=== PATIENT | male | born 1975 | race Caucasian/White ===

== ENCOUNTER 2018-10-15 13:00 | Outpatient (RCR) | payer MEDICARE, MEDICAID, SELFPAY ==
--- NOTE | 2018-10-02 14:57 | HMH.PTOPWND ---
Rehab Outpt Wound Evaluation Rehab OP Wound Evaluation Start: 10/02/18 13:57 Freq: Status: Active Protocol: Document 10/02/18 14:42 PHOMARGA (Rec: 10/02/18 14:57 PHORNE [id number]) Electronically Signed By Cesario Joyce, PT 10/02/18 14:42 Subjective/History History History Pt is 43 yowm who presents with c/o sammy LE sores off and on x ~ 1 yr with insidious onset of symptoms. He currently reports no c/o pain and minimal swelling with no drainage from the multiple open sores on both lower legs. He reports that he has been treated for these sores previously with good results, but the sores always return. He has significant hemosiderin staining to sammy LE and numerous small purpuritic areas throughout both lower legs. He reports hx of DM-II ( poorly controlled), HTN, HL, and CCY. Would recommend PAYAL and further vascular studies if needed to assist with treatment options. Subjective Subjective Currently no c/o. Wound Eval Wound Right Lower Leg Wound Type multiple open sores of uknown type Is This a Chronic Wound Yes Wound Bed Appearance [place] Percentage Granulated (%) 100 Wound Margins Description Well Defined Surrounding Tissue Appearance Purple Edema Type Non-Pitting Edema Degree 1+ Query Text:1+ Trace, Barely Detectable, Rebound 15-30 seconds 2+ Moderate, Slight Indentation, Rebound 10-20 seconds 3+ Deep, Deeper Indentation, Rebound > 30 seconds 4+ Very Deep, Rebound > 60 seconds Edema Appearance Open Sores Drainage Amount None Drainage Odor No Odor Primary Dressing Unna Boot Wound Secondary Dressing Type Gauze Roll/Wrap,Elastic Bandage Dressing Change Patient Tolerance Tolerated Well Left Lower Leg Wound Type multiple sores of unknown type Is This a Chronic Wound Yes Wound Bed Appearance [place] Percentage Granulated (%) 100 Wound Margins Description Well Defined Surrounding Tissue Appearance
== END 2018-10-15 13:05 | disposition home or self-care (01) ==
LOC: PT 13:00
PROVIDERS: Visit Provider Family Medicine
DX: I87.2 Venous insufficiency (chronic) (peripheral) (principal)
CPT/HCPCS: 29580; 97163

== ENCOUNTER 2019-02-26 09:00 | Outpatient (RCR) | payer MEDICARE, MEDICAID, SELFPAY ==
--- NOTE | 2019-01-21 13:38 | HMH.PTOPWND ---
Rehab Outpt Wound Evaluation Rehab OP Wound Evaluation Start: 01/21/19 13:02 Freq: Status: Active Protocol: Document 01/21/19 13:26 DOMENICO (Rec: 01/21/19 13:32 PHORNE [id number]) Electronically Signed By Cesario Joyce, PT 01/21/19 13:26 Subjective/History History History Pt is 43 yowm who presents with c/o sammy LE sores off and on x ~ 1-2 yrs with insidious onset of symptoms. He currently reports no c/o pain and minimal swelling with minima drainage from the multiple open sores on both lower legs. He states, My legs looked really good after the last time I saw you but these sore came back after a couple months. He has significant hemosiderin staining to sammy LE and numerous small purpuritic areas throughout both lower legs. He reports hx of DM-II ( poorly controlled), HTN, HL, and CCY. Subjective Subjective Pt with no c/o pain, he doess reports new onset of red rash to B upper arms and anterior abdomen. Wound Eval Wound Left Lower Leg Wound Type Stasis Ulcer Is This a Chronic Wound Yes Wound Bed Appearance [place] Edema Appearance Open Sores Drainage Description Serosanguineous Drainage Amount Small Primary Dressing Unna Boot Wound Secondary Dressing Type Gauze Roll/Wrap,Adhering Gauze Roll Wound Debridement Method Gauze Dressing Change Patient Tolerance Tolerated Well Right Lower Leg Wound Type Stasis Ulcer Is This a Chronic Wound Yes Wound Bed Appearance [place] Wound Margins Description Well Defined Edema Appearance Open Sores Drainage Description Serosanguineous Drainage Amount Small Drainage Odor No Odor Primary Dressing Unna Boot Wound Secondary Dressing Type Gauze Roll/Wrap,Adhering Gauze Roll Wound Debridement Method Gauze Dressing Change Patient Tolerance Tolerated Well Wound Problems/Impairments Impairments Problems/Impairmments Palpation Tenderness,Impaired
== END 2019-02-26 09:05 | disposition home or self-care (01) ==
LOC: PT 09:00
PROVIDERS: PCP Urology; Referring Provider Physician Assistant; Visit Provider Physician Assistant
DX: R60.0 Localized edema (principal)
CPT/HCPCS: 29580; 97162; 97597; 97760

== ENCOUNTER → 2019-03-06 13:40 | Outpatient (CLI) | payer MEDICARE, MEDICAID, SELFPAY | PROVIDERS: PCP Physician Assistant; Visit Provider Physician Assistant | DX: G47.30 Sleep apnea, unspecified (principal); I10 Essential (primary) hypertension; R40.0 Somnolence; R06.02 Shortness of breath | CPT/HCPCS: G0399 ==

== ENCOUNTER → 2019-04-08 10:39 | Outpatient (CLI) | payer MEDICARE, MEDICAID, SELFPAY ==
[2019-04-08 11:54] LABS: Alanine Aminotransferase 53 U/L (12-78); Albumin Level 4.5 gm/dL (3.4-5.0); Albumin/Globulin Ratio 1.3 (1.1-1.8); Alkaline Phosphatase 240 U/L (46-116); Anion Gap 12.4 mEq/L (5-15); Aspartate Amino Transferase 32 U/L (15-37); Bilirubin,Total 0.8 mg/dL (0.2-1.0); Blood Urea Nitrogen 18 mg/dL (7-18); Calcium 9.1 mg/dL (8.5-10.1); Carbon Dioxide 29 mmol/L (21.0-32.0); Chloride 100 mmol/L (98-107); Chol/HDL Ratio 4.8 (1-3.5); Cholesterol 101 mg/dL (140-200); Creatinine,Serum 0.93 mg/dL (0.70-1.30); Estimated Glomerular Filt Rate 90 ml/min (>60); GFR (African American) 108 ML/MIN (>60); Globulin 3.4 gm/dl (1.3-3.2); Glucose 183 mg/dL (74-106); HDL Cholesterol 21 mg/dL (27-67); LDL Cholesterol 42 mg/dL (0-130); Potassium 4.4 mmoL/L (3.5-5.1); Sodium 137 mmol/L (136-145); Thyroid Stimulating Hormone 2.94 uIU/ml (0.358-3.740); Total Protein,Serum 7.9 gm/dL (6.4-8.2); Triglycerides 190 mg/dL (30-200); VLDL Cholesterol 38 mg/dL (0-40)
== END ==
PROVIDERS: Visit Provider Physician Assistant
DX: E11.42 Type 2 diabetes mellitus with diabetic polyneuropathy (principal); E78.5 Hyperlipidemia, unspecified; I10 Essential (primary) hypertension; Z13.29 Encounter for screening for other suspected endocrine disorder; Z79.84 Long term (current) use of oral hypoglycemic drugs
CPT/HCPCS: 36415; 80053; 80061; 83036; 84443

== ENCOUNTER → 2019-07-16 14:17 | Outpatient (CLI) | payer MEDICARE, MEDICAID, SELFPAY ==
[2019-07-16 17:06] LABS: Hemoglobin A1C 7.4 % (0.0-7.0)
[2019-07-16 17:13] LABS: Alanine Aminotransferase 69 U/L (21-72); Albumin Level 4.5 g/dL (3.4-5.0); Albumin/Globulin Ratio 1.3 (1.1-1.8); Alkaline Phosphatase 241 U/L (46-116); Aspartate Amino Transferase 40 U/L (15-37); Bilirubin,Total 0.4 mg/dL (0.2-1.0); Blood Urea Nitrogen 14 mg/dL (7-18); Calcium 9.2 mg/dL (8.5-10.1); Carbon Dioxide 25 mmol/L (21.0-32.0); Chloride 101 mmol/L (98-107); Chol/HDL Ratio 5.1 (1-3.5); Cholesterol 101 mg/dL (140-200); Creatinine,Serum 0.93 mg/dL (0.70-1.30); Estimated Glomerular Filt Rate 90 ml/min (>60); GFR (African American) 108 ML/MIN (>60); Globulin 3.4 gm/dl (1.3-3.2); Glucose 131 mg/dL (74-106); HDL Cholesterol 20 mg/dL (27-67); LDL Cholesterol 43 mg/dL (0-130); Sodium 139 mmol/L (137-145); Total Protein,Serum 7.9 g/dL (6.4-8.2); Triglycerides 188 mg/dL (30-200); VLDL Cholesterol 38 mg/dL (0-40)
== END ==
PROVIDERS: Visit Provider Physician Assistant
DX: E11.42 Type 2 diabetes mellitus with diabetic polyneuropathy (principal); R60.0 Localized edema; E78.5 Hyperlipidemia, unspecified; Z79.4 Long term (current) use of insulin; R06.02 Shortness of breath
CPT/HCPCS: 36415; 80053; 80061; 83036; 83880

== ENCOUNTER → 2019-09-30 13:34 | Outpatient (CLI) | payer MEDICARE, MEDICAID, SELFPAY | PROVIDERS: PCP Physician Assistant; Visit Provider Nurse Practitioner Family | DX: G47.33 Obstructive sleep apnea (adult) (pediatric) (principal) | CPT/HCPCS: 94762 ==

== ENCOUNTER → 2019-10-15 14:17 | Outpatient (CLI) | payer MEDICARE, MEDICAID, SELFPAY ==
[2019-10-15 15:02] LABS: Hemoglobin A1C 7.5 % (4.0-6.0)
[2019-10-15 16:08] LABS: Alanine Aminotransferase 51 U/L (12-78); Albumin Level 5.3 g/dl (3.5-5.0); Albumin/Globulin Ratio 1.8 (1.1-1.8); Alkaline Phosphatase 202 U/L (38-126); Anion Gap 16.2 mEq/L (5-15); Aspartate Amino Transferase 56 U/L (17-59); Bilirubin,Total 0.4 mg/dl (0.2-1.3); Blood Urea Nitrogen 11 mg/dl (9-20); Calcium 10.1 mg/dl (8.4-10.2); Carbon Dioxide 27 mmol/L (22.0-30.0); Chloride 97 mmol/L (98-107); Chol/HDL Ratio 3.8 (1-3.5); Cholesterol 113 mg/dl (140-200); Estimated Glomerular Filt Rate 124 ml/min (>60); GFR (African American) 150 ML/MIN (>60); Glucose 137 mg/dl (74-100); HDL Cholesterol 30 mg/dl (40-60); Potassium 4.2 mmoL/L (3.5-5.1); Sodium 136 mmol/L (136-145); Total Protein,Serum 8.3 g/dl (6.3-8.2); Triglycerides 243 mg/dl (30-150); VLDL Cholesterol 49 mg/dL (0-40)
[2019-10-15 16:19] LABS: Direct LDL Cholesterol 65.73 mg/dL (100-129)
== END ==
PROVIDERS: Visit Provider Physician Assistant
DX: E78.5 Hyperlipidemia, unspecified (principal); I10 Essential (primary) hypertension; E11.42 Type 2 diabetes mellitus with diabetic polyneuropathy; Z79.84 Long term (current) use of oral hypoglycemic drugs
CPT/HCPCS: 36415; 80053; 80061; 83036

== ENCOUNTER → 2020-01-15 14:02 | Outpatient (CLI) | payer MEDICARE, MEDICAID, SELFPAY ==
--- NOTE | 2020-01-15 14:11 | XR_ITS ---
PROCEDURE: XR CHEST 2V CLINICAL HISTORY: HEMOPTYSIS COMPARISON: No exams were available for comparison FINDINGS: The cardiomediastinal silhouette and pulmonary vascularity are within normal limits. The lungs are clear without infiltrates, suspicious nodules, or pleural effusions. No acute bony abnormalities. IMPRESSION: No acute findings. Dictated by: Beni James MD 01/15/2020 16:00 Beni James MD in [place] 01/15/2020 16:00
[2020-01-15 15:02] LABS: Basophils # 0.1 K/mm3 (0-0.2); Basophils % 0.8 % (0.1-2.0); Eosinophils # 0.1 K/mm3 (0.0-0.4); Eosinophils % 1.9 % (0.1-12.0); Hematocrit 40.6 % (42.0-52.0); Hemoglobin 13.9 g/dL (14.1-18.0); Lymphocytes # 2.1 K/mm3 (0.7-4.5); Mean Corpuscular HGB Conc 34.1 g/dL (31.8-35.4); Mean Corpuscular Hemoglobin 30.8 pg (27.0-31.2); Mean Corpuscular Volume 90.4 fl (80-94); Mean Platelet Volume 7.7 fl (7.4-10.4); Monocytes # 0.3 K/mm3 (0.1-1.0); Monocytes % 3.8 % (1.7-9.3); Neutrophils # 4.7 K/mm3 (1.8-7.8); Neutrophils % 64.5 % (37.0-80.0); Platelet Count 214 K/mm3 (142-424); White Blood Count 7.3 K/mm3 (4.8-10.8)
[2020-01-15 15:27] LABS: Hemoglobin A1C 8.6 % (4.0-6.0)
[2020-01-15 15:29] LABS: Chloride 100 mmol/L (98-107); Sodium 139 mmol/L (136-145)
[2020-01-15 15:30] LABS: Potassium 4.3 mmoL/L (3.5-5.1)
[2020-01-15 15:32] LABS: Alanine Aminotransferase 52 U/L (12-78); Albumin Level 4.7 g/dl (3.5-5.0); Albumin/Globulin Ratio 1.5 (1.1-1.8); Alkaline Phosphatase 238 U/L (38-126); Anion Gap 16.3 mEq/L (5-15); Aspartate Amino Transferase 64 U/L (17-59); Bilirubin,Total 0.6 mg/dl (0.2-1.3); Blood Urea Nitrogen 13 mg/dl (9-20); Carbon Dioxide 27 mmol/L (22.0-30.0); Estimated Glomerular Filt Rate 106 ml/min (>60); GFR (African American) 128 ML/MIN (>60); Globulin 3.1 g/dL (1.3-3.2); Total Protein,Serum 7.8 g/dl (6.3-8.2)
[2020-01-15 15:33] LABS: Calcium 9.6 mg/dl (8.4-10.2); Chol/HDL Ratio 5.1 (1-3.5); Cholesterol 108 mg/dl (140-200); Glucose 164 mg/dl (74-100); HDL Cholesterol 21 mg/dl (40-60); Triglycerides 259 mg/dl (30-150); VLDL Cholesterol 52 mg/dL (0-40)
[2020-01-15 15:42] LABS: NT Pro Brain Natriuretic Pep. 163 pg/mL (0-125)
[2020-01-15 15:44] LABS: Direct LDL Cholesterol 47.92 mg/dL (100-129)
== END ==
PROVIDERS: PCP Family Medicine; Visit Provider Physician Assistant
DX: R14.0 Abdominal distension (gaseous) (principal); R19.4 Change in bowel habit; R10.84 Generalized abdominal pain; R60.0 Localized edema; Z79.84 Long term (current) use of oral hypoglycemic drugs; Z79.899 Other long term (current) drug therapy
CPT/HCPCS: 36415; 71046; 80053; 80061; 83036; 83880; 85025

== ENCOUNTER → 2020-02-27 10:41 | Outpatient (CLI) | payer MEDICARE, MEDICAID, SELFPAY ==
[2020-02-27 14:22] LABS: Coronavirus 19 IgG Antibody Negative (Negative); Coronavirus 19 IgM Antibody Negative (Negative)
== END ==
PROVIDERS: Visit Provider Internal Medicine Gastroenterology
DX: Z01.89 Encounter for other specified special examinations (principal); Z12.11 Encounter for screening for malignant neoplasm of colon; K92.1 Melena
CPT/HCPCS: 36415; 86328

== ENCOUNTER 2020-02-29 08:13 | Day surgery (SDC) | payer MEDICARE, MEDICAID, SELFPAY ==
[2020-02-23 15:08] VITALS: BMI 41.0
[2020-02-29] VITALS (7 sets, daily range): BP systolic 103–134; BP diastolic 56–81; PULSE 102–112; RESP 18; TEMP 36.1–36.4; O2SAT 96–98
[2020-02-29 08:47] LABS: POC Glucose,Bedside 233 (70-110)
--- NOTE | 2020-02-29 09:49 | HMH.ANESCL ---
[facility] Anesthesia Checklist - Structural Data Admitted From: Home Planned Operative Procedure/s: colonoscopy Consent for Planned Operative Procedure(s) Verified: Yes - Airway Assessment C-Spine Mobility Assessed: Yes TMJ Mobility Assessed: Yes Dentition: Poor Dentition - Neurological Assessment Level of Consciousness: Awake, Alert, Appropriate - Anesthesia Plan Anesthesia Risk discussed: Yes Anesthesia Plan: Verified ASA Class: III Anesthesia Type: MAC [facility] History I have reviewed the patient's past medical history: Yes Medical History: Reports:: Diabetes Mellitus Type 2, Gastroesophageal Reflux Disease(GERD), Hyperlipidemia, Hypertension, Migraine Denies:: Cancer, Diabetes Mellitus Type 1, Internal Pacemaker, MRSA, Seizures *Have you ever received a pneumonia vaccine?: No *Have you received a flu vaccine this season?: Yes Other Medical History: Reports: Arthritis Anesthesia experience/problems:: none Other Surgeries: Yes: Cholecystectomy, Other. No: Pacemaker Amputation: No Fractures: No - *Social History Last grade of school completed: Some college Smoking Status: Never smoker Alcohol Intake: never Substance Use Type: denies use *Occupational Status:: disabled Housing: house Household Members: none *Travel in the last 8 weeks: None Family Hx:: Cancer, Hyperlipidemia, Diabetes, Heart Attack, Hypertension
--- NOTE | 2020-02-29 10:12 | P.PCN_ITS ---
[facility] Procedure Note Procedure Note:: Colonoscopy Procedure Report: Colonoscopy with cold snare polypectomy and hemorrhoid band ligation Endoscopist: Fred Thapa II, MD Referring physician: Yadi COTO Date of Procedure: February 29, 2020 Equipment: Olympus 180 variable stiffness pediatric colonoscope Sedation: MAC sedation Indication: Mr. House is a 44-year-old gentleman with left-sided abdominal pain and rectal bleeding. The patient is Hemoccult positive. He has had intermittent rectal bleeding since his cholecystectomy in May 2015. He reports no change in bowel habits or family history of colon cancer. He is trying to lose weight. This is his first colonoscopy. Procedure: Prior to the procedure, a history and physical exam was performed, and patient's medications and allergies were reviewed. The risks, benefits and alternatives of the sedation and procedure were discussed with the patient. All questions were answered and informed consent was obtained. The patient was brought to the procedure room. Patient identification and proposed procedure were verified by the physician and the nurse. The patient was placed in a left lateral decubitus position and the scope was passed under direct vision. Throughout the procedure, the patient's blood pressure, pulse, and oxygen saturations were monitored continuously. The colonoscopy was accomplished without difficulty. The patient tolerated the procedure well. Findings: On digital rectal examination there was normal rectal tone. There were no external hemorrhoids. The prostate was 2+, smooth, soft, symmetric without nodules. The colonoscope was introduced through the anal canal to the rectum and advanced to the cecum. The ileocecal valve and appendiceal orifice were identified. The scope was advanced a short distance into the ileum which appeared grossly normal. The scope was then withdrawn into the colon. The cecum and ascending colon were normal. There were a total of 6 colon polyps (transverse x1 (4 mm), sigmoid x2 (3 and 5 mm), rectosigmoid x2 (3 and 7 mm) and rectal x1 (5 mm)). All of these were removed via cold snare polypectomy. There were scattered diverticuli throughout the descending and sigmoid colon (LEFT colon). The rectum itself was normal. Upon retroflexion within the rectum there were grade 2-3 internal hemorrhoids. The preparation was excellent throughout with [place] Preparation Score of 9. The cecal time was 15 minutes. Impression: 1. Diminutive colonic polyps x6 2. Left-sided diverticulosis 3. Grade 2-3 internal hemorrhoids status post band ligation x3 Plan: I will discussed the findings with the patient and family. I will follow-up the polyp histology and recommend repeat screening/surveillance colonoscopy again and 5 years based upon the pathology. I would encourage bulk fiber supplementation on a long-term daily maintenance basis.
== END 2020-02-29 11:05 | disposition home or self-care (01) ==
LOC: OUTP 08:15
PROVIDERS: PCP Family Medicine; Visit Provider Internal Medicine Gastroenterology
PROC: 0DJD8ZZ Inspection of Lower Intestinal Tract, Via Natural or Artificial Opening Endoscopic (ICD-10-PCS; CPT 45378; principal; 2020-02-29 09:00)
DX: K63.5 Polyp of colon (principal); K57.30 Diverticulosis of large intestine without perforation or abscess without bleeding; K64.1 Second degree hemorrhoids; E11.9 Type 2 diabetes mellitus without complications; K21.9 Gastro-esophageal reflux disease without esophagitis; E78.5 Hyperlipidemia, unspecified; I10 Essential (primary) hypertension; G43.909 Migraine, unspecified, not intractable, without status migrainosus; M19.90 Unspecified osteoarthritis, unspecified site; Z90.49 Acquired absence of other specified parts of digestive tract; Z80.9 Family history of malignant neoplasm, unspecified; Z83.438 Family history of other disorder of lipoprotein metabolism and other lipidemia
CPT/HCPCS: 45385; 45398; 82962; 88305

== ENCOUNTER → 2021-01-12 11:38 | Outpatient (CLI) | payer MEDICARE, MEDICAID, SELFPAY ==
[2021-01-12 12:10] LABS: Hemoglobin A1C 7.4 % (4.0-6.0)
[2021-01-12 13:16] LABS: Chloride 101 mmol/L (98-107); Potassium 4.1 mmoL/L (3.5-5.1); Sodium 139 mmol/L (136-145)
[2021-01-12 13:19] LABS: Alanine Aminotransferase 55 U/L (12-78); Albumin Level 5.3 g/dl (3.5-5.0); Albumin/Globulin Ratio 1.8 (1.1-1.8); Alkaline Phosphatase 233 U/L (38-126); Anion Gap 20.1 mEq/L (5-15); Aspartate Amino Transferase 45 U/L (17-59); Bilirubin,Total 0.5 mg/dl (0.2-1.3); Blood Urea Nitrogen 12 mg/dl (9-20); Calcium 9.7 mg/dl (8.4-10.2); Carbon Dioxide 22 mmol/L (22.0-30.0); Cholesterol 110 mg/dl (140-200); Estimated Glomerular Filt Rate 106 ml/min (>60); GFR (African American) 128 ML/MIN (>60); Globulin 2.9 g/dL (1.3-3.2); Glucose 166 mg/dl (74-100); Total Protein,Serum 8.2 g/dl (6.3-8.2); Triglycerides 219 mg/dl (30-150); VLDL Cholesterol 44 mg/dL (0-40)
[2021-01-12 13:20] LABS: Chol/HDL Ratio 4.2 (1-3.5); HDL Cholesterol 26 mg/dl (40-60)
[2021-01-12 13:36] LABS: Direct LDL Cholesterol 51.09 mg/dL (100-129)
== END ==
PROVIDERS: Visit Provider Physician Assistant
DX: E11.42 Type 2 diabetes mellitus with diabetic polyneuropathy (principal); E78.2 Mixed hyperlipidemia; Z79.84 Long term (current) use of oral hypoglycemic drugs
CPT/HCPCS: 36415; 80053; 80061; 83036

== ENCOUNTER → 2021-04-19 12:01 | Outpatient (CLI) | payer MEDICARE, MEDICAID, SELFPAY ==
[2021-04-19 13:59] LABS: Chloride 96 mmol/L (98-107); Potassium 4.2 mmoL/L (3.5-5.1); Sodium 137 mmol/L (136-145)
[2021-04-19 14:01] LABS: Alanine Aminotransferase 42 U/L (12-78); Aspartate Amino Transferase 36 U/L (17-59); Blood Urea Nitrogen 17 mg/dl (9-20); Estimated Glomerular Filt Rate 106 ml/min (>60); GFR (African American) 128 ML/MIN (>60)
[2021-04-19 14:02] LABS: Albumin Level 5.1 g/dl (3.5-5.0); Albumin/Globulin Ratio 1.6 (1.1-1.8); Alkaline Phosphatase 267 U/L (38-126); Anion Gap 19.2 mEq/L (5-15); Bilirubin,Total 0.4 mg/dl (0.2-1.3); Calcium 9.8 mg/dl (8.4-10.2); Carbon Dioxide 26 mmol/L (22.0-30.0); Cholesterol 113 mg/dl (140-200); Globulin 3.1 g/dL (1.3-3.2); Glucose 186 mg/dl (74-100); Total Protein,Serum 8.2 g/dl (6.3-8.2); Triglycerides 233 mg/dl (30-150); VLDL Cholesterol 47 mg/dL (0-40)
[2021-04-19 14:03] LABS: Chol/HDL Ratio 4.3 (1-3.5); HDL Cholesterol 26 mg/dl (40-60)
[2021-04-19 14:13] LABS: Direct LDL Cholesterol 48.94 mg/dL (100-129)
== END ==
PROVIDERS: Visit Provider Physician Assistant
DX: I10 Essential (primary) hypertension (principal); E11.42 Type 2 diabetes mellitus with diabetic polyneuropathy; E78.2 Mixed hyperlipidemia; Z79.84 Long term (current) use of oral hypoglycemic drugs
CPT/HCPCS: 36415; 80053; 80061; 83036

== ENCOUNTER 2023-06-06 14:05 | Outpatient (CLI) | payer MEDICARE, MEDICAID, SELFPAY ==
--- NOTE | 2023-06-06 | CA_ITS ---
APPROVED REPORT EXAM: Comprehensive 2D, Doppler, and color-flow Echocardiogram [employer] Engineer: Jenniffer Aguilar, RCS, RVS Ht: 5 ft 8 in Wt: 375lbs BSA: 2.67 BP: 134/89 mmHg Rhythm: Tachycardia Indications: SOB, Family Hx- Afib, DM Echo Enhancing Agent Comments: Extreme body habitus-best exam possible due to patient factors 2D Dimensions Left Atrium 3.59 cm M: 3.0 - 4.0 LA Volume 55.70 mL LA Volume Index [id number] mL/m2 (M/F) 16-34 EF AP4 48.40 % GL Strain -21.4 % M-Mode Dimensions RVDd 2.03 cm (0.9-2.6) LA Diam 4.34 cm (1.9-4.0) LVDd 4.67 cm (3.5-5.7) LVDs 2.67 cm (3.5-5.7) IVSd 1.18 cm (0.6-1.1) PWd 0.86 cm (0.6-1.1) EF (Teich) 73.90% EPSs 0.65 cm FS 42.80% EDV (Teich) 100.80 mL TAPSE 2.12 (<1.7) ESV (Teich) 26.30 mL LV Diastology E Decel Time 103 (160-240 msec) E/A Ratio 0.82 MED A' 10.10 cm/s LAT A' 9.40 cm/s Aortic Valve JANINE Index 1.23 cm2/m2 AoV Peak Malik. 144.0 (50-130 cm/s) AO Peak GR. 8.30 mmHg AO Mean GR. 4.20 (<5 mmHg) AO VTI 19.9 (18-25 cm) JAINNE (VTI) 2.94 (2.5-4.5 cm2) Mitral Valve MV A Velocity 96.0 (40-130 cm/s) E/A Ratio 0.82 Tricuspid Valve TR P. Velocity 266.00 cm/s RAP Estimate 10.00 mmHg RVSP 38.20 mmHg Left Ventricle The left ventricle is normal size. The left ventricular systolic function is low-normal. There is normal left ventricular wall thickness. The septum is asynchronous. The left ventricular diastolic function is normal. LVEF is 50%. Right Ventricle The right ventricle is not well visualized. Atria The left atrium size is normal. The right atrium size is normal. The interatrial septum is not well visualized. Aortic Valve The aortic valve opens well. There is no aortic valvular stenosis. No aortic regurgitation is present. Mitral Valve The mitral valve is normal in structure. No evidence of mitral valve stenosis. Trace mitral regurgitation. Tricuspid Valve The tricuspid valve leaflets are thin and pliable. Trace tricuspid regurgitation. RVSP is 25-30 mmHg. Pulmonic Valve The pulmonary valve is normal in structure. Trace pulmonic regurgitation. Great Vessels The aortic root is normal in size. The ascending aorta is normal in size. Other Information Study Quality: Technically Difficult Conclusion Technically difficult study due to poor accoustic windows. Low-normal LV systolic function (LVEF 50%). RV not well visualized. No significant valvular stenosis or regurgitation. Electronically signed by : Josette Sagastume MD 06/09/2023 15:47:08
== END 2023-06-06 23:59 ==
LOC: RT 14:07
PROVIDERS: PCP Family Medicine; Visit Provider Physician Assistant
DX: R06.02 Shortness of breath (principal)
CPT/HCPCS: 93306

== ENCOUNTER 2023-07-08 11:04 | Outpatient (CLI) | payer MEDICARE, MEDICAID, SELFPAY | END 2023-07-08 23:59 | LOC: RT 11:06 | PROVIDERS: PCP Family Medicine; Visit Provider Nurse Practitioner | DX: R00.2 Palpitations (principal) | CPT/HCPCS: 93270 ==

== ENCOUNTER 2023-08-08 15:00 | Outpatient (CLI) | payer MEDICARE, MEDICAID, SELFPAY ==
--- NOTE | 2023-08-08 15:06 | XR_ITS ---
FINAL REPORT CLINICAL HISTORY: Foot pain, states his foot drops when walking COMPARISON: None FINDINGS: RIGHT FOOT: Three views of the right foot were obtained. There is no acute fracture or dislocation. The joint spaces are intact. There is no soft tissue abnormality. IMPRESSION: No acute bony abnormality. Reviewed, Interpreted and Dictated by Babar Kaur III, MD Transcribed by Sunita Vital Authenticated and [facility]
--- NOTE | 2023-08-08 15:06 | XR_ITS ---
FINAL REPORT CLINICAL HISTORY: Ankle pain, states his foot drops when walking COMPARISON: None FINDINGS: RIGHT ANKLE: Three views of the right ankle were obtained. There is no acute fracture or dislocation. The joint spaces and mortise are intact. There is no soft tissue abnormality. IMPRESSION: No acute bony abnormality. Reviewed, Interpreted and Dictated by Babar Kaur III, MD Transcribed by Sunita Vital Authenticated and . [facility]
== END 2023-08-08 23:59 ==
PROVIDERS: PCP Physician Assistant; Visit Provider Nurse Practitioner
DX: M25.571 Pain in right ankle and joints of right foot (principal); M79.671 Pain in right foot; E11.8 Type 2 diabetes mellitus with unspecified complications; Z79.84 Long term (current) use of oral hypoglycemic drugs
CPT/HCPCS: 73610; 73630

== ENCOUNTER 2023-08-13 11:48 | Outpatient (CLI) | payer MEDICARE, MEDICAID, SELFPAY ==
--- NOTE | 2023-08-13 | CA_ITS ---
APPROVED REPORT Exam: Pharmacologic Technologist: Diandra Doe, Ht: 5 ft 8 in Wt: 262 lbs BSA: 2.29 m2 HR: 103 bpm BP: 145/86 mmHg Rhythm: sinus tach Medical History Medical History: HTN, Hyperlipidemia, Diabetic ??? Noninsulin Medications: Lisinopril,,,,, Asa,,,,, Metformin,,,,, Pantoprazole,,,,, Glimepiride,,,,, HCTZ,,,,, FeNOfibrate,,,,, BenaDRYL,,,,, CaNAGLIFLOZIN,,,,, AtrovASTATIN,,,,, DexTRIN,,,,, Epi PEN,,,,, Allergies: No known drug allergies Cardiac Risk Factors: HTN, Hyperlipidemia, Diabetes (non-insulin), FHX of CAD Stress Test Details Test: LEXISCAN HR Resting HR: 105 bpm Max Heart Rate (APMHR): 174 bpm Max HR Achieved: 129 bpm Target HR (85% APMHR): 148 bpm % of APMHR: 74 Recovery HR: 103 bpm BP Resting BP: 145.0/86.0 mmHg Max BP: 152.0/76.0 mmHg Recovery BP: 133.0/77.0 mmHg ECG Resting ECG: sinus tach Stress ECG: No significant ST changes Clinical Exercise duration: 04:01 min Highest Stage Achieved: Stress ECG Conclusion During infusion patient had dyspnea. No arrhythmias/ectopy. ST changes: None Conclusion: Ekg portion unremarkable related lexiscan infusion. Myoview images reported separately. Test Summary REST . . . . . . . Sitting REST 01:27 . . 105 . 145/ 86 . . Stage 1 . . . . . . . Myoview Injected Stage 1 01:00 . . 126 . . . . Stage 2 01:00 . . 129 . 131/ 74 . . Stage 3 01:00 . . 121 . 120/ 79 . . Stage 4 01:00 . . 122 . 135/ 78 . . Stage 4 01:01 . . 122 . 135/ 78 . Stop exercise at 04:01 RECOVERY 01:00 . . 115 . 133/ 77 . . RECOVERY 02:00 . . 118 . 134/ 85 . . RECOVERY 03:00 . . 120 . 152/ 76 . . RECOVERY 03:15 . . 116 . 152/ 76 . . Electronically signed by : Josette Sagastume MD 08/14/2023 11:36:56
--- NOTE | 2023-08-13 11:52 | NM_ITS ---
APPROVED REPORT Exam: Nuclear Stress Test Indication: chest pain..soa..syncope Patient Location: Outpatient Stress Tech: Yaima Doe [place] Tech:Marisol Fortune, ARRT, RT (R)(N) Ht: 5 ft 9 in Wt: 265 lbs HR: 105 bpm BP: 145/86 mmHg BSA: 2.33 m2 Rhythm: NSR TID: 1.15 BMI: 39.1 History: chest pain..soa..syncope Procedure: Patient received 0.4 mg of intravenous Lexiscan, resting heart rate 105 bpm, resting blood pressure 145/86 mmHg, with Lexiscan maximum heart rate achieved was 129 bpm which is 85 % of the maximum predicted heart rate and blood pressure was 152/76 mmHg. With Lexiscan, patient denied any complaint of chest pain. Cardiac Stress and Resting SPECT Images: Cardiac Stress and Resting SPECT images were obtained using technetium 99m Myoview 32.4 mCi stress and 10.73 mCi at rest. Resting and stress imaging in supine and prone positions demonstrate no evidence of fixed or reversible perfusion defects. Gated imaging demonstrates normal global and regional LV systolic function. LVEF is calculated at 66%. Conclusion: No evidence of fixed or reversible perfusion defects. Gated imaging demonstrates normal global and regional LV systolic function. LVEF is calculated at 66%. Electronically signed by : Josette Sagastume MD 08/14/2023 11:50:28
[2023-08-13] MEDS: REGADENOSON 0.4MG/5ML SYRINGE 0.400000000000000022 MG IV (13:26)
[2023-08-13] MEDS: SODIUM CHLORIDE 0.9% 10ML SYR (RAD ONLY) 10 ML IV ×2 (13:26)
[2023-08-13] MEDS: ISOTOPE MYOVIEW (PER STUDY) 1 DOSE IV (13:26)
== END 2023-08-13 23:59 ==
LOC: RAD 11:49
PROVIDERS: PCP Family Medicine; Visit Provider Nurse Practitioner
DX: R06.00 Dyspnea, unspecified (principal); R93.1 Abnormal findings on diagnostic imaging of heart and coronary circulation; R00.2 Palpitations; M21.371 Foot drop, right foot
CPT/HCPCS: 78452; 93017; 93018; A9502; J2785

== ENCOUNTER 2023-11-20 14:07 | Outpatient (CLI) | payer MEDICARE, MEDICAID, SELFPAY ==
--- NOTE | 2023-11-20 14:38 | XR_ITS ---
FINAL REPORT CLINICAL HISTORY: SOA FINDINGS: No acute pulmonary density is evident. There is no evidence of effusion or other pleural disease. The mediastinum has a normal appearance. The cardiac silhouette is unremarkable. IMPRESSION: Unremarkable chest exam. Reviewed, Interpreted and Dictated by Kamala Bales MD Transcribed by Ann-Marie Sandhu Authenticated and [facility]
== END 2023-11-20 23:59 | disposition home or self-care (01) ==
LOC: RAD 14:08
PROVIDERS: PCP Family Medicine; Visit Provider Internal Medicine Pulmonary Disease
DX: R06.02 Shortness of breath (principal)
CPT/HCPCS: 71046

== ENCOUNTER 2023-12-24 14:00 | Outpatient (RCR) | payer MEDICARE, MEDICAID, SELFPAY ==
--- NOTE | 2023-09-24 12:55 | HMH.PTOPEV ---
PT Outpatient Evaluation Rehab PT Outpatient Evaluation Start: 09/24/23 11:40 Freq: Status: Active Protocol: Document 09/24/23 11:40 ELIEZER (Rec: 09/24/23 11:59 ELIEZER [id number]) E-signed By Allen Miller, PT Outpatient Therapy Subjective History Subjective History Pt reports h/o chronic right ankle pain since . Pt reports multiple episodes of right ankle shooting pain from lateral aspect up to knee. Pt also reports intermittent episodes of right ankle shooting pain and then 'causes my foot to slap down.' Pt reports intermittent medial aspect right ankle pain as well. PMH:DM II New diagnosis of cancer in past 12 No months? Chief Complaint Pain,Gives out/Unstable, Paresthesia Symptom Type Ache,Throb,Dull,Stabbing Symptoms Relieved By Rest/Positioning,Heat Symptoms Aggravated By Standing,Physical Activity, Walking Prior Functional Limitations Housework,Standing,Walking Current Functional Limitations Housework,Standing,Walking Symptom Description Constant but Variable Level of pain today (0-10) 6 Pain scale - at its best (0-10) 6 Pain scale - at its worst (0-10) 10 Ankle/Foot Eval Gait Observation General Gait Pattern Observation Antalgic Gait Assistive Device Ambulation Assistive Device Straight Cane Palpation Tenderness right Ankle/Foot Palpation Findings Tenderness Ankle/Foot Palpation Overall Comment 3/4 peroneals, post. tib, ATF ROM Ankle/Foot Dorsiflexion w/Knee Extended 0 Active Range Motion (degrees) Ankle/Foot Plantar Flexion Active Range 0-40 of Motion (degrees) Ankle/Foot Eversion Active Range of 0-25 Motion (degrees) Ankle/Foot Inversion Active Range of 0-40 Motion (degrees) Ankle/Foot ROM Limitations Soft Tissue Tightness,Pain MMT Ankle Dorsiflexion Strength Grade 5 Normal Ankle Plantarflexion Strength Grade 5 Normal Foot Eversion Strength Grade 4- Good- Foot Inversion Strength Grade 5 Normal Lower Extremity Functional Index Activities Today, do you or would you have any difficulty at all with: a.Any of your usual work, housework or Extreme difficulty or unable school activities to perform activity b. Your usual hobbies, recreational or Quite a bit of difficulty sporting activities c. Getting into or out of the bath Extreme difficulty or unable to perform activity d. Walking between rooms Moderate difficulty e. Putting on your shoes or socks Moderate difficulty f. Squatting A little bit of difficulty g. Lifting an object, like a bag of Extreme difficulty or unable groceries from the floor to perform activity h. Performing light activities around Quite a bit of difficulty your home i. Performing heavy activities around Moderate difficulty your home j. Getting into or out of a car A little bit of difficulty k. Walking 2 blocks Extreme difficulty or unable to perform activity l. Walking a mile Extreme difficulty or unable to perform activity m. Going up or down 10 stairs (about 1 Quite a bit of difficulty flight of stairs) n. Standing for 1 hour Quite a bit of difficulty o. Sitting for 1 hour No difficulty p. Running on even ground Moderate difficulty q. Running on uneven ground A little bit of difficulty r. Making sharp turns while running fast Moderate difficulty s. Hopping Extreme difficulty or unable to perform activity t. Rolling over in bed No difficulty LEFI Score Lower Extremity Functional Index Score 31 Outpatient Therapy Assessment Impairments Problems/Impairmments Palpation Tenderness,Impaired Range of Motion,Impaired Strength,Impaired Gait Pattern ,Impaired Walking,Impaired Standing,Impaired Household Care,Subjective C/O Pain, Impaired Self Care/Self Management Prognosis Rehab Potential Good Clinical Impression Consistent with Diagnosis Yes Short Term Goals Number of Weeks 4 Decreased Palpation Tenderness Yes: 1-2/4 right ankle Increase Range of Motion Yes: 75% OF WFL RIGHT ANKLE AROM Increase Strength Yes: 4/5 R ANKLE EVR. Increase Ability to Walk Yes: 15MIN Increase Ability to Stand Yes: 15MIN Improve Ability For Household Care Yes: 15MIN Improve LEFI Score Yes: 40-45 Decrease Subjective C/O Pain Yes: 3-5/10 W/ABOVE ACTIVITIES Patient to be Ind w/ HEP Yes Half-Way Goals Number of Weeks 6-8 Decreased Palpation Tenderness Yes: 0-1/4 RIGHT ANKLE Increase Range of Motion Yes: WFL RIGHT ANKLE AROM Increase Strength Yes: 4+-5/5 RIGHT ANKLE EVR Improve Gait Pattern with Assistive Yes: WFL W/SC Device Increase Ability to Walk Yes: 30MIN Increase Ability to Stand Yes: 30MIN Improve Ability For Household Care Yes: 30MIN Improve LEFI Score Yes: 50-55 Decrease Subjective C/O Pain Yes: 0-2/10 W/ABOVE ACTIVITIES Patient to be Ind w/ Advanced HEP Yes Outpatient Therapy Plan of Care Treatment Plan May Include Therapeutic Exercise Including Home Yes Exercise Program Manual Therapy Techniques Yes Neuromuscular Re-education Yes Therapeutic Activities to Return to Yes Previous Functional/Work Level Gait Training Yes ADL/Self Care Education Yes Dry Needling Yes Thermal Modalities Yes Electrical Stimulation Yes Ultrasound/Phonophoresis Yes Iontophoresis Yes Orthotics/Bracing/Splinting Yes Vasopneumatic Compression Pump Yes Eval/Re-Eval Yes Frequency Times per week 2-3 Duration Number of Weeks 6-8 Addendums This patient is a candidate for social No or vocational rehab? Patient/Guardian verbally acknowledges Yes understanding of treatment program and consents to further treatment? Patient/Guardian verbally acknowledges Yes understanding of diagnosis, prognosis and goals for treatment? Eval Complexity PT Charges 95063 - Moderate Complexity Shoulder/Elbow Eval Shoulder Objective Measurements Elbow Objective Measurements PHYSICIAN CERTIFICATION: I certify the specified therapy services for [facility] are required, authorized, and reviewed every 30 days.
--- NOTE | 2023-10-22 11:50 | HMH.RHREAS ---
Rehab Reassessment Rehab OP Re-assessment Start: 09/24/23 11:40 Freq: Status: Active Protocol: Document 10/22/23 11:44 ELIEZER (Rec: 10/22/23 11:49 ELIEZER [id number]) E-signed By Allen Miller, PT Lower Extremity Functional Index Activities Today, do you or would you have any difficulty at all with: a.Any of your usual work, housework or A little bit of difficulty school activities b. Your usual hobbies, recreational or Quite a bit of difficulty sporting activities c. Getting into or out of the bath Quite a bit of difficulty d. Walking between rooms A little bit of difficulty e. Putting on your shoes or socks No difficulty f. Squatting A little bit of difficulty g. Lifting an object, like a bag of Moderate difficulty groceries from the floor h. Performing light activities around No difficulty your home i. Performing heavy activities around Extreme difficulty or unable your home to perform activity j. Getting into or out of a car Moderate difficulty k. Walking 2 blocks Extreme difficulty or unable to perform activity l. Walking a mile Extreme difficulty or unable to perform activity m. Going up or down 10 stairs (about 1 Extreme difficulty or unable flight of stairs) to perform activity n. Standing for 1 hour Extreme difficulty or unable to perform activity o. Sitting for 1 hour No difficulty p. Running on even ground A little bit of difficulty q. Running on uneven ground Quite a bit of difficulty r. Making sharp turns while running fast Extreme difficulty or unable to perform activity s. Hopping Extreme difficulty or unable to perform activity t. Rolling over in bed Moderate difficulty LEFI Score Lower Extremity Functional Index Score 33 Rehab Re-assessment Subjective Subjective Pt reports improved overall function related to household activities since I eval, and reports 1-4/10 right ankle pain on VAS depending on activity level. Objective Objective Notes AROM: RIGHT ANKLE DF 0-8, PF 0 -61, INV 0-44, EVR 0-23 MMT: RIGH ANKLE DF 5/5, PF 5/5 , INV 5/5, EVR 4--4/5 TTP: RIGHT ANKLE PERONEAL INSERTION 2-3/4, POST. TIB INSERTION 2/4, ATF 0/4 Assessment Progress Assessment Progressing as Expected Assessment Notes SIGNIFICANTLY IMPROVED ROM, STRENGTH, AND TTP Patient goals met STG'S 12/09 LTG'S 2/10 Goals Not Met STG'S 07/12, LTG'S 01/10 Plan Plan Pt to continue skilled P.T. to make further improvements in ROM, strength, TTP, and gait to allow for optimal function Frequency of Therapy 1-2x/wk Duration of therapy 4-6wks Time and Billing Re-Eval Time 11 Re-Eval Billing Units 1 PHYSICIAN CERTIFICATION: I certify the specified therapy services for [facility] are required, authorized, and reviewed every 30 days.
--- NOTE | 2023-11-20 16:02 | HMH.RHREAS ---
Rehab Reassessment Rehab OP Re-assessment Start: 09/24/23 11:40 Freq: Status: Active Protocol: Document 11/20/23 15:32 JOSELAUREN (Rec: 11/20/23 15:54 ELIEZER [id number]) E-signed By Allen Miller, PT Lower Extremity Functional Index Activities Today, do you or would you have any difficulty at all with: a.Any of your usual work, housework or A little bit of difficulty school activities b. Your usual hobbies, recreational or Quite a bit of difficulty sporting activities c. Getting into or out of the bath Moderate difficulty d. Walking between rooms No difficulty e. Putting on your shoes or socks No difficulty f. Squatting A little bit of difficulty g. Lifting an object, like a bag of Moderate difficulty groceries from the floor h. Performing light activities around Moderate difficulty your home i. Performing heavy activities around Moderate difficulty your home j. Getting into or out of a car Extreme difficulty or unable to perform activity k. Walking 2 blocks Extreme difficulty or unable to perform activity l. Walking a mile Extreme difficulty or unable to perform activity m. Going up or down 10 stairs (about 1 Moderate difficulty flight of stairs) n. Standing for 1 hour A little bit of difficulty o. Sitting for 1 hour No difficulty p. Running on even ground Moderate difficulty q. Running on uneven ground Moderate difficulty r. Making sharp turns while running fast Quite a bit of difficulty s. Hopping Moderate difficulty t. Rolling over in bed No difficulty LEFI Score Lower Extremity Functional Index Score 43 Rehab Re-assessment Subjective Subjective Pt reports exacerbation of right foot and ankle pain over the last ~7-10 days @8/10 this pm on VAS. Pt reports ' bright pink red spot on top of that right foot. Weird discoloration, and it hurts pretty bad. Been like that for a couple days Objective Objective Notes AROM: RIGHT ANKLE DF 0-12, PF 0-41, INV 0-32, EVR 0-18 MMT: RIGH ANKLE DF 5/5, PF 5/5 , INV 5/5, EVR 4-/5 TTP: RIGHT ANKLE PERONEAL INSERTION 2-3/4, POST. TIB INSERTION 2-3/4, ATF 0/4 LEF: 43 VS 31 ON IEVAL Assessment Progress Assessment Slower Than Expected Assessment Notes objective and subjective regressions since last reassessment. pt has not been compliant w/skilled P.T. POC, and today hernadez the first and only visit since the last reassessment appt ~29 days ago . Patient goals met STG'S 01/09 LTG'S 07/13 Goals Not Met STG'S 06/11, LTG'S 01/10 Plan Plan Pt to continue skilled P.T. to make further improvements in ROM, strength, TTP, and gait to allow for optimal function with changes to POC freq and to overall length of care d/t h/o non-compliance. Frequency of Therapy 1x/wk Duration of therapy 2-4wks Time and Billing Re-Eval Time 14 Re-Eval Billing Units 0 PHYSICIAN CERTIFICATION: I certify the specified therapy services for [facility] are required, authorized, and reviewed every 30 days.
--- NOTE | 2023-12-24 16:01 | HMH.RHREAS ---
Rehab Reassessment Rehab OP Re-assessment Start: 09/24/23 11:40 Freq: Status: Active Protocol: Document 12/24/23 14:46 ELIEZER (Rec: 12/24/23 16:01 ELIEZER [id number]) E-signed By Allen Miller, PT Lower Extremity Functional Index Activities Today, do you or would you have any difficulty at all with: a.Any of your usual work, housework or Moderate difficulty school activities b. Your usual hobbies, recreational or Moderate difficulty sporting activities c. Getting into or out of the bath Quite a bit of difficulty d. Walking between rooms A little bit of difficulty e. Putting on your shoes or socks No difficulty f. Squatting No difficulty g. Lifting an object, like a bag of No difficulty groceries from the floor h. Performing light activities around No difficulty your home i. Performing heavy activities around Moderate difficulty your home j. Getting into or out of a car A little bit of difficulty k. Walking 2 blocks A little bit of difficulty l. Walking a mile Moderate difficulty m. Going up or down 10 stairs (about 1 Quite a bit of difficulty flight of stairs) n. Standing for 1 hour Extreme difficulty or unable to perform activity o. Sitting for 1 hour No difficulty p. Running on even ground A little bit of difficulty q. Running on uneven ground Quite a bit of difficulty r. Making sharp turns while running fast Extreme difficulty or unable to perform activity s. Hopping Extreme difficulty or unable to perform activity t. Rolling over in bed No difficulty LEFI Score Lower Extremity Functional Index Score 47 Rehab Re-assessment Subjective Subjective Pt reports 6-7/10 right ankle pain on VAS this am, and reports 'another episode where my ankle (right) rolled on me just walking.' Objective Objective Notes AROM: RIGHT ANKLE DF 0-10, PF 0-40, INV 0-35, EVR 0-18 MMT: RIGH ANKLE DF 5/5, PF 5/5 , INV 5/5, EVR 4-/5 TTP: RIGHT ANKLE PERONEAL INSERTION 2-3/4, POST. TIB INSERTION 2-3/4, ATF 2-3/4 LEF: 47 VS 43 ON last reassessment Assessment Progress Assessment No Progress Assessment Notes Pt w/very minimal to no objective progress w/strength, ROM, TTP (regression), or LEF (slight improvement) since last reassessment. Patient goals met STG'S 01/09 LTG'S 07/13 Goals Not Met STG'S 06/11, LTG'S 01/10 Plan Plan Will hold skilled P.T. treatments d/t lack of objective progress for ~1-2 months. Pt advised to seek more immediate follow-up w/ referring physician. Frequency of Therapy na Duration of therapy na Time and Billing Re-Eval Time 12 Re-Eval Billing Units 0 PHYSICIAN CERTIFICATION: I certify the specified therapy services for [facility] are required, authorized, and reviewed every 30 days.
== END 2023-12-24 14:05 | disposition home or self-care (01) ==
LOC: PT 14:00
PROVIDERS: Visit Provider Nurse Practitioner
DX: M25.371 Other instability, right ankle (principal)
CPT/HCPCS: 97010; 97014; 97035; 97110; 97163; 97164; G0283

== ENCOUNTER 2024-02-10 12:45 | Outpatient (CLI) | payer MEDICARE, MEDICAID, SELFPAY ==
--- OUTSIDE RECORDS SUMMARY | 2024-02-10 12:48 | XMS_ITS ---
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 Phone Suri Sanabria Primary Care Provider [phone] [address] Unavailable [phone] REASON FOR VISIT follow up on rash MEDICATIONS Medication SIG (Take, Route, Frequency, Duration) Notes Start Date End Date Status EQ Fiber Therapy 500 MG 1 tab(s) orally once a day Not-Taking Rybelsus 3 MG 1 tab with a full glass of water at least 30 minutes before first food of the day Orally Once a day for 30 day(s) 12/13/2023 Active EPINEPHrine 0.3 MG/0.3ML INJECT THE CONT ENTS OF 1 AUTO-INJECTOR INTRAMUSCULARLY ONCE NEEDED FOR ANAPHYLAXIS REACTION for 1 Active Stool Softener Laxative 8.6-50 MG 2 tab(s) orally once a day (at bedtime) Not-Taking Tylenol Extra Strength 500 MG 1 tablet as needed Orally daily as needed Active metFORMIN HCl 1000 MG 1 tab(s) orally 2 times a day for 90 days Active Fenofibrate 145 MG 1 tab(s) orally once a day for 90 days Active Atorvastatin Calcium 10 MG 1 tab(s) oral ly once a day for 90 days Active Invokana 300 MG take one tablet by mouth once daily orally once a day for 90 days Active hydroCHLOROthiazide 12.5 MG 1 tab(s) orally once a day for 90 days Active Silvadene 1 % 1 vanna applied topically 2 times a day Active Pantoprazole Sodium 40 MG 1 tab(s) orall y once a day for 90 days Active Aspirin Adult Low Dose 81 MG 1 tab(s) orally once a day Active Glimepiride 4 MG 1 tab(s) orally once a day for 90 days Active Lisinopril-hydroCHLOROthia zide 10-12.5 MG 1 tab(s) orally once a day for 90 days Active Cephalexin 500 MG 1 capsule Orally Thr ee times a day for 10 day(s) 02/06/2024 Active Mupirocin 2 % 1 application Externally Twice a day 02/06/2024 Active Benadryl Allergy 25 MG 1 tab(s) orally o nce daily prn Active Tylenol PM Extra Strength 500-25 MG 1 tablet at bedtime as needed Orally Once a day at bedtime Active CPAP machine and supplies - as directed as directed Active VITAL SIGNS Weight 260.4 lbs 02/06/2024 Blood pressure systolic 110 mm Hg 02/06/20 24 Blood pressure diastolic 60 mm Hg Heart Rate 114 /min 02/06/2024 Height 69 in 02/06/2024 BMI 38.45 kg/m2 02/06/2024 Encounters Encounter Location Date Provider Diagnosis [facility] [address] [place] [address] [address] [place] [id number] 02/06/2024 Yadi Crowlilia Left arm cellulitis L03.114 ASSESSMENTS Encounter Date Diagnosis Assessment Notes Treatment Notes Treatment Clinical Notes 02/06/2024 Left arm cellulitis (ICD-10 - L03.114) PLAN OF TREATMENT Medication Medication Name Sig Start Date Stop Date Notes Cephalexin 500 MG 1 capsule Orally Thr ee times a day for 10 day(s) 02/06/2024 Mupirocin 2 % 1 application Externally Twice a day 024 Next Appt Details Follow Up: 2 Weeks, Reason: Provider Name:Yadi craft, 02/20/2024 02:30:00 PM, [address] [place] [address] [address], [place], [phone], Provider Name:Yadi craft, 03/11/2024 11:00:00 AM, [address] [place] [address] [address], [place], [id number], Progress Notes * Examination Category Sub-Category Detail Notes General Examination Heart: RSR Lungs: clear to auscultatio n General Appearance: NAD Skin: left lower arm with multiple abrasions and surrounding erythema, hot to the touch Chest: normal shape and exp ansion History and Physical Notes * HPI (History of Present Illness) Category Sub-Category Detail Notes Dermatology rash Pt presents tovincent y for a follow up on rash. Pt sts a few days after starting the Rybelsus his left arm broke out. He sts it goes all the way down to his fingers. He believes it was an allergic reaction. Pt sts he stopped taking the Rybelsus. Pt sts that it is warm to the touch. Pt sts he has been using mupirocin cream on it. Pt sts his neighbor is a medical insurance claims specialist at and told him to wrap it up and keep it wrapped when going out and to keep cream on it and to keep it cleaned as much as possible. Pt sts the rash itches as well very badly.
--- OUTSIDE RECORDS SUMMARY | 2024-02-10 12:48 | XMS_ITS ---
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
--- OUTSIDE RECORDS SUMMARY | 2024-02-10 12:48 | XMS_ITS ---
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
--- OUTSIDE RECORDS SUMMARY | 2024-02-10 12:49 | XMS_ITS | Patient Health Record ---
Author Organization [facility] Address [address] [place] [id number] Care Team Providers Care Business Support Coordinator Name Role Phone Suri Sanabria Primary Care Provider Byron Jimbo Unavailable [phone] Yadi Lu Unavailable [phone] ALLERGIES No Known Allergies RESULTS Component Value Reference Range Notes Glycohemoglobin A1c (in hous e) Reviewed date:05/22/2023 09:54:51 AM Interpretation:A1C 8.3% Performing Lab: Notes/Report: A1C 8.3% glycohemoglobin 8.3% 5 - 6.5 % P-BNP (Brain Natriuretic Pep tide) Reviewed date:05/22/2023 09:54:51 AM Interpretation:Bnp 247 Performing Lab: Notes/Report: Test performed by [facility] [address] [place] [address] , [address], [place] [address] Cr Gotti MD, Workforce Management Coordinator CLIA: [id number] proBrain Natriuretic Peptide 247 <125 pg/mL P-Comprehensive Metabolic Pa izabel (CMP) Reviewed date:05/22/2023 09:54:51 AM Interpretation:Glu 275, Alk Phos 266 Performing Lab: Notes/Report: Test performed by [facility] [address] [place] [address] [address], [address], [place] [address] Cr Gotti MD, Workforce Management Coordinator CLIA: [id number] Sodium 137 135-145 mEq/L Potassium 4.3 3.5-5.3 mEq/L Chloride 101 97-108 mEq/L CO2 22 22-32 mEq/L Glucose 275 65-99 mg/dL BUN 17 6-20 mg/dL Creatinine 0.85 0.70-1.30 mg/dL Calcium 9.5 8.6-10.4 mg/dL eGFR by Creatinine 109 >59 mL/min/1.73m2 Protein 7.3 6.0-8.3 g/dL Albumin 4.8 3.5-5.3 g/dL Alkaline Phosphatase 266 40-129 IU/L ALT (SGPT) 38 <5-55 IU/L AST (SGOT) 23 <5-46 IU/L Bilirubin, Total 0.3 <0.2-1.2 mg/dL A/G Ratio 1.9 1.1-2.5 mg/dL P-Lipid Panel Reviewed date:05/22/2023 09:54:51 AM Interpretation:Trigs 223, Hdl 25 Performing Lab: Notes/Report: Test performed by [facility] [address] [place] [address] , [address] , [place] [address] Cr Gotti MD, Workforce Management Coordinator CLIA: [id number] Cholesterol 111 <200 mg/dL Triglycerides 223 <150 mg/dL HDL Cholesterol 25 >39 mg/dL Cholesterol / HDL Ratio 4.44 0.00-4.99 Ratio Non-HDL Cholesterol 86 <130 mg/dL LDL Cholesterol (Calculation) 41 <130 mg/dL LDL Cholesterol Levels* Less than 100 mg/dL Optimal 100 to 129 mg/dL Near Optimal/ Above Optimal 130 to 159 mg/dL Borderline High 160 to 189 mg/dL High 190 mg/dL and above Very High * Categories as recommended by the 2004 ATPIII guidelines LDL/HDL Ratio 1.7 <3.3 Ratio LDL Cholesterol Patient History Test Date: 11/15/2021 LDL Results: 42 Units: mg/dL % Change: - Test Date: 02/16/2022 LDL Results: 51 Units: mg/dL % Change: +21% Test Date: 05/15/2023 LDL Results: 41 Units: mg/dL % Change: -19% P-PSA Reviewed date:05/22/2023 09:54:51 AM Interpretation:Normal Performing Lab: Notes/Report: Test performed by [facility] [address] [place] [address] [place] [address] Cr Gotti MD, Workforce Management Coordinator CLIA: [id number] PSA 0.66 <4.00 ng/mL Please note this is an ultrasensitive PSA assay with a lower limit of detection of 0.014 ng/mL. This test is performed by the [employer] ECLIA methodology. Values obtained with different assay methods or kits cannot be directly compared. proBrain Natriuretic Peptide Reviewed date:09/13/2023 10:27:33 AM Interpretation:Normal Performing Lab: Notes/Report: Test performed by [facility] [address] [place], [place] [address] [place] [address] Cr Gotti MD, Workforce Management Coordinator CLIA: [id number] proBrain Natriuretic Peptide 87 <300 pg/mL Please note the updated reference range values which are stratified by age. Positive >450 pg/mL Indeterminate 300-400 pg/mL Negative <300 pg/mL CBC Venipuncture (in house) Reviewed date:12/13/2023 11:00:17 AM Interpretation: Performing Lab: Notes/Report: wbc 6.5 3.5 - 10 lymph 26.4% 15 - 50 mid 6.0% 2 - 15 gran 67.6% 35 - 80 rbc 4.86 3.5 - 5.5 hgb 14.4 11.5 - 16.5 hct 42.8 35 - 55 mcv 88.1 75 - 100 mch 29.6 25 - 35 mchc 33.6 31 - 38 platlet 151 100 - 400 Glycohemoglobin A1c (in hous e) Reviewed date:12/13/2023 11:00:17 AM Interpretation:7.9 Performing Lab: Notes/Report: 7.9 glycohemoglobin 7.9% 5 - 6.5 % P-Comprehensive Metabolic Pa izabel (CMP) Reviewed date:12/13/2023 11:00:17 AM Interpretation:gluc 105, alk phos 355 Performing Lab: Notes/Report: Test performed by [facility] [address] [facility] , [address], [place] [address] Cr Gotti MD, Workforce Management Coordinator CLIA: [id number] Sodium 138 135-145 mmol/L Potassium 3.6 3.5-5.3 mmol/L Chloride 98 97-108 mmol/L CO2 26 22-32 mmol/L Glucose 105 65-99 mg/dL BUN 19 6-20 mg/dL Creatinine 0.94 0.70-1.30 mg/dL Calcium 9.9 8.6-10.4 mg/dL eGFR by Creatinine 101 >59 mL/min/1.73m2 Protein 7.6 6.0-8.3 g/dL Albumin 5.0 3.5-5.3 g/dL Alkaline Phosphatase 355 40-129 IU/L ALT (SGPT) 33 <5-55 IU/L AST (SGOT) 21 <5-46 IU/L Bilirubin, Total 0.4 <0.2-1.2 mg/dL A/G Ratio 1.9 1.1-2.5 mg/dL P-Lipid Panel Reviewed date:12/13/2023 11:00:17 AM Interpretation:trigs 225, hdl 23 Performing Lab: Notes/Report: Test performed by [facility], [address] Julius [address] , [place] [address] Cr Gotti MD, Workforce Management Coordinator CLIA: [id number] Cholesterol 93 <200 mg/dL Triglycerides 225 <150 mg/dL HDL Cholesterol 23 >39 mg/dL Cholesterol / HDL Ratio 4.04 0.00-4.99 Ratio Non-HDL Cholesterol 70 <130 mg/dL LDL Cholesterol (Calculation) 25 <130 mg/dL LDL Cholesterol Levels* Less than 100 mg/dL Optimal 100 to 129 mg/dL Near Optimal/ Above Optimal 130 to 159 mg/dL Borderline High 160 to 189 mg/dL High 190 mg/dL and above Very High * Categories as recommended by the 2004 ATPIII guidelines LDL/HDL Ratio 1.1 <3.3 Ratio LDL Cholesterol Patient History Test Date: 05/15/2023 LDL Results: 41 Units: mg/dL % Change: -19% Test Date: 09/11/2023 LDL Results: 37 Units: mg/dL % Change: -9% Test Date: 12/11/2023 LDL Results: 25 Units: mg/dL % Change: -32% P-TSH reflex to FT4 Reviewed date:12/13/2023 11:00:17 AM Interpretation:Normal Performing Lab: Notes/Report: Test performed by [facility] [address] [place], [place] [address] , [address], [place] [address] Cr Gotti MD, Workforce Management Coordinator CLIA: [id number] TSH reflex to FT4 1.93 0.43-5.25 mU/L Echocardiogram Reviewed date:06/20/2023 01:07:27 PM Interpretation: Performing Lab: Notes/Report: P-Microalbumin/Creatinine, R andom Urine Sample Reviewed date:09/13/2023 10:27:33 AM Interpretation:alb/creat unable to calculate Performing Lab: Notes/Report: Test performed by [facility] [address] [place] [address] , [address], [place] [address] Cr Gotti MD, Workforce Management Coordinator CLIA: [id number] Albumin/Creatinine Ratio, Urine See Comment 0-30 ug/mg Unable to calculate Urine Albumin/Creatinine Ratio when urine creatinine or urine albumin fall outside established reportable range. Microalbumin, Urine, Random <0.3 Creatinine, Urine 48.3 P-Lipid Panel Reviewed date:09/13/2023 10:27:33 AM Interpretation:trig 205, hdl 24 Performing Lab: Notes/Report: Test performed by [facility] [address] [place], [place] [address] [place] , [place] [address] Cr Gotti MD, Workforce Management Coordinator CLIA: [id number] Cholesterol 102 <200 mg/dL Triglycerides 205 <150 mg/dL HDL Cholesterol 24 >39 mg/dL Cholesterol / HDL Ratio 4.25 0.00-4.99 Ratio Non-HDL Cholesterol 78 <130 mg/dL LDL Cholesterol (Calculation) 37 <130 mg/dL LDL Cholesterol Levels* Less than 100 mg/dL Optimal 100 to 129 mg/dL Near Optimal/ Above Optimal 130 to 159 mg/dL Borderline High 160 to 189 mg/dL High 190 mg/dL and above Very High * Categories as recommended by the 2004 ATPIII guidelines LDL/HDL Ratio 1.5 <3.3 Ratio LDL Cholesterol Patient History Test Date: 02/16/2022 LDL Results: 51 Units: mg/dL % Change: +21% Test Date: 05/15/2023 LDL Results: 41 Units: mg/dL % Change: -19% Test Date: 09/11/2023 LDL Results: 37 Units: mg/dL % Change: -9% P-Comprehensive Metabolic Pa izabel (CMP) Reviewed date:09/13/2023 10:27:33 AM Interpretation:gluc 150, alk phos 243 Performing Lab: Notes/Report: Test performed by [facility], [address] , [address], [place] [address] Cr Gotti MD, Workforce Management Coordinator CLIA: [id number] Sodium 139 135-145 mEq/L Potassium 4.2 3.5-5.3 mEq/L Chloride 100 97-108 mEq/L CO2 24 22-32 mEq/L Glucose 150 65-99 mg/dL BUN 20 6-20 mg/dL Creatinine 0.97 0.70-1.30 mg/dL Calcium 9.8 8.6-10.4 mg/dL eGFR by Creatinine 97 >59 mL/min/1.73m2 Protein 7.5 6.0-8.3 g/dL Albumin 5.0 3.5-5.3 g/dL Alkaline Phosphatase 243 40-129 IU/L ALT (SGPT) 32 <5-55 IU/L AST (SGOT) 21 <5-46 IU/L Bilirubin, Total 0.3 <0.2-1.2 mg/dL A/G Ratio 2.0 1.1-2.5 mg/dL Glycohemoglobin A1c (in hous e) Reviewed date:09/13/2023 10:27:33 AM Interpretation:7.6 Performing Lab: Notes/Report: 7.6 glycohemoglobin 7.6% 5 - 6.5 % REASON FOR REFERRAL Diagnosis 1 Venous stasis dermat itis of both lower extremities (I87.2) Referral Organization [facility] Referring Provider First Name Yadi Referring Provider Last Name Tabitha Referring Provider Speciality Physician Furniture Salesperson Referred Provider Physical Therapy, . Referred Provider Specialty Physical The rapist General Notes Yadi Lu 12/10 10:25:10 PM > Pt needs an appt with lymphedema and wound care, Rosemary Liang 12/12/2023 9:05:25 AM > faxed to scheduling 12/12/23, Geeta Randall 12/13/2023 10:25:36 AM > pt informed of progress. Referral Priority Routine MEDICATIONS Medication SIG (Take, Route, Frequency, Duration) Notes Start Date End Date Status Cephalexin 500 MG 1 capsule Orally Thr ee times a day for 10 day(s) 02/06/2024 Active Mupirocin 2 % 1 application Externally Twice a day 02/06/2024 Active Glimepiride 4 MG 1 tab(s) orally once a day for 90 days Active metFORMIN HCl 1000 MG 1 tab(s) orally 2 times a day for 90 days Active Stool Softener Laxative 8.6-50 MG 2 tab(s) orally once a day (at bedtime) Not-Taking Lisinopril-hydroCHLOROthia zide 10-12.5 MG 1 tab(s) orally once a day for 90 days Active Tylenol PM Extra Strength 500-25 MG 1 tablet at bedtime as needed Orally Once a day at bedtime Active Fenofibrate 145 MG 1 tab(s) orally once a day for 90 days Active CPAP machine and supplies - as directed as directed Active Atorvastatin Calcium 10 MG 1 tab(s) oral ly once a day for 90 days Active Invokana 300 MG take one tablet by mouth once daily orally once a day for 90 days Active Tylenol Extra Strength 500 MG 1 tablet as needed Orally daily as needed Active hydroCHLOROthiazide 12.5 MG 1 tab(s) orally once a day for 90 days Active Silvadene 1 % 1 vanna applied topically 2 times a day Active EQ Fiber Therapy 500 MG 1 tab(s) orally once a day Not-Taking Pantoprazole Sodium 40 MG 1 tab(s) orall y once a day for 90 days Active Benadryl Allergy 25 MG 1 tab(s) orally o nce daily prn Active Rybelsus 3 MG 1 tab with a full glass of water at least 30 minutes before first food of the day Orally Once a day for 30 day(s) 12/13/2023 Active Aspirin Adult Low Dose 81 MG 1 tab(s) orally once a day Active EPINEPHrine 0.3 MG/0.3ML INJECT THE CONT ENTS OF 1 AUTO-INJECTOR INTRAMUSCULARLY ONCE NEEDED FOR ANAPHYLAXIS REACTION for 1 Active IMMUNIZATIONS Vaccine Route Administration Date Status Comme nts COVID 19 Moderna IM Intramuscular 09/27/2020 Administered COVID 19 Moderna Unknown 10/25/2020 Administered COVID 19 Moderna Unknown 05/11/2021 Administered Fluzone PF Quad (6-35 months) Unknown 03/07/2022 Administered Fluzone Quad (6months&older) Unknown 03/11/2014 Administered Fluzone Quad (6months&older) IM Intramuscular 04/11/2020 Administered xFlu shot- 6months-36 months of lpo-YGMQ-DDBZ-trivalent Unknown 03/14/2012 Administered xFluzone (6mos and older)-trivalent Unknown 03/10/2009 Administered SOCIAL HISTORY Sex Assigned At : Social History Observation Description Sex Assigned At Unknown PROBLEMS Problem Type ICD Code Onset Dates Problem Status W/U Status Risk SNOMED Code Notes Problem Hyperlipidemia (E78.5) Active confirmed Hyperlipidemia (34320779) Problem Essential hypertension (I10) Active confirmed 88593561 Problem Obesity (E66.9) Active confirmed Obesit y (949144108) Problem Lymphedema (I89.0) Active confirmed 234 297831 Problem Mixed hyperlipidemia (E78.2) Active confirmed 735745701 Problem Unspecified urinary incontinence (R32) Active confirmed 839784659 Problem Peripheral vascular disease (I73.9) Active confirmed 171168896 Problem GERD without esophagitis (K21.9) Active confirmed 793994564 Problem Obstructive sleep apnea syndrome (G47.33) Active confirmed 65935940 Problem Gastroesophageal reflux disease, esophagitis presence not specified (K21.9) Active confirmed 334316520 Problem BMI 40.0-44.9, adult (Z68.41) Active confirmed Body mass ind ex 40+ - morbidly obese (755549895) Problem Hyperlipidemia, unspecified hyperlipidemia type (E78.5) Active confirmed 78075062 Problem Carpal tunnel syndrome of left wrist (G56.02) Active confirmed 527822382578178 Problem Hypersomnia (G47.10) Active confirmed 06607547 Problem Type 2 diabetes mellitus with diabetic polyneuropathy, without long-term current use of insulin (E11.42) Active confirmed 64354161 Problem Venous stasis dermatitis of both lower extremities (I87.2) Active confirmed 30531389 Problem Bee sting allergy (Z91.030) Active confirmed 189078652 Problem Night-waking disorder (G47.20) Active confirmed 788340799 Problem Gastroesophageal reflux disease, unspecified whether esophagitis present (K21.9) Active confirmed 031400611 VITAL SIGNS Heart Rate 114 /min 02/06/2024 Blood pressure diastolic 60 mm Hg 02/06/2024 Height 69 in 02/06/2024 Blood pressure systolic 110 mm Hg 02/06/2024 Weight 260.4 lbs 02/06/2024 BMI 38.45 kg/m2 02/06/2024 Encounters Encounter [facility] Date [facility] [id number] [facility]/15/[facility]23 Yadi Tabitha Essential hypertensi on I10 ; Peripheral vascular disease I73.9 ; Type 2 diabetes mellitus with diabetic polyneuropathy, without long-term current use of insulin E11.42 ; Venous stasis dermatitis of both lower extremities I87.2 ; Lower extremity edema R60.0 ; GERD without esophagitis K21.9 ; Skin infection L08.9 ; Hyperlipidemia E78.5 ; Obesity E66.9 and Screening PSA (prostate specific antigen) Z12.[address] [id number] 05/16/2023 Yadisarah Lu SOB (shortness of breath) R06.[address] [id number] 06/20/2023 Yadi Crowdy [address] [id number] 09/11/2023 Yadi Tabitha Essential hypertensi on I10 ; Peripheral vascular disease I73.9 ; Type 2 diabetes mellitus with diabetic polyneuropathy, without long-term current use of insulin E11.42 ; Venous stasis dermatitis of both lower extremities I87.2 ; Lower extremity edema R60.0 ; GERD without esophagitis K21.9 ; Skin infection L08.9 ; Hyperlipidemia E78.5 and Obesity E66.[address] [id number] 09/13/2023 Yadi Tabitha Type 2 diabetes darren itus with diabetic polyneuropathy, without long-term current use of insulin E11.[address] [place] [id number] 10/01/2023 Jimbo Matthews Type 2 diabetes darren itus with diabetic polyneuropathy, without long-term current use of insulin E11.[address] [facility] [address] [place] [facility] [address] [place], [place] [id number] 12/11/2023 Yadi Lu Essential hypertensi on I10 ; Peripheral vascular disease I73.9 ; Type 2 diabetes mellitus with diabetic polyneuropathy, without long-term current use of insulin E11.42 ; Venous stasis dermatitis of both lower extremities I87.2 ; Lower extremity edema R60.0 ; GERD without esophagitis K21.9 ; Hyperlipidemia E78.5 and Obesity E66.[address] [facility] [address] [place] [facility] [address] [place], [place] [id number] 12/13/2023 Yadi Lu [facility] [address] [place], [place] [id number] 01/22/2024 Yadi Lu [facility] [address] [place], [place] [id number] 01/27/2024 Suri Sanabrai [facility] [address] [place], [place] [id number] 02/06/2024 Yadisarah Lu Left arm cellulitis L03.[address] [facility] [address] [place], [place] [id number] 02/06/2024 Suri Sanabria ASSESSMENTS Encounter Date Diagnosis Assessment Notes Treatment Notes Treatment Clinical Notes 05/15/2023 Essential hypertension (ICD-10 - I10) Will monitor BP at home and call if readings are elevated. 05/15/2023 Peripheral vascular disease (ICD-10 - I73.9) 05/16/2023 SOB (shortness of breath) (ICD-10 - R06.02) 09/11/2023 Essential hypertension (ICD-10 - I10) 09/11/2023 Peripheral vascular disease (ICD-10 - I73.9) 09/13/2023 Type 2 diabetes mellitus with diabetic polyneuropathy, without long-term current use of insulin (ICD-10 - E11.42) 10/01/2023 Type 2 diabetes mellitus with diabetic polyneuropathy, without long-term current use of insulin (ICD-10 - E11.42) Need report from recent podiatry evaluation to complete form 12/11/2023 Essential hypertension (ICD-10 - I10) 12/11/2023 Peripheral vascular disease (ICD-10 - I73.9) 02/06/2024 Left arm cellulitis (ICD-10 - L03.114) 12/11/2023 Type 2 diabetes mellitus with diabetic polyneuropathy, without long-term current use of insulin (ICD-10 - E11.42) discussed dietary changes 09/11/2023 Type 2 diabetes mellitus with diabetic polyneuropathy, without long-term current use of insulin (ICD-10 - E11.42) discussed dietary changes 05/15/2023 Type 2 diabetes mellitus with diabetic polyneuropathy, without long-term current use of insulin (ICD-10 - E11.42) discussed dietary changes 05/15/2023 Venous stasis dermatitis of both lower extremities (ICD-10 - I87.2) 09/11/2023 Venous stasis dermatitis of both lower extremities (ICD-10 - I87.2) 12/11/2023 Venous stasis dermatitis of both lower extremities (ICD-10 - I87.2) 12/11/2023 Lower extremity goran a (ICD-10 - R60.0) 05/15/2023 Lower extremity goran a (ICD-10 - R60.0) 09/11/2023 Lower extremity goran a (ICD-10 - R60.0) 05/15/2023 GERD without esophagitis (ICD-10 - K21.9) 12/11/2023 GERD without esophagitis (ICD-10 - K21.9) 09/11/2023 GERD without esophagitis (ICD-10 - K21.9) 09/11/2023 Skin infection (ICD-10 - L08.9) Has been wrapping his legs and apply silvadene and sometimes mupirocin. He does not need anymore silvadene. 12/11/2023 Hyperlipidemia (ICD-10 - E78.5) 05/15/2023 Skin infection (ICD-10 - L08.9) Has been wrapping his legs and apply silvadene and sometimes mupirocin. He does not need anymore silvadene. 05/15/2023 Hyperlipidemia (ICD-10 - E78.5) 09/11/2023 Hyperlipidemia (ICD-10 - E78.5) 12/11/2023 Obesity (ICD-10 - E66.9) 09/11/2023 Obesity (ICD-10 - E66.9) 05/15/2023 Obesity (ICD-10 - E66.9) 05/15/2023 Screening PSA (prostate specific antigen) (ICD-10 - Z12.5) PLAN OF TREATMENT Pending Test Test Name Order Date LC-bnp 09/06/2021 P-BNP (Brain Natriuretic Peptide) 2023 Next Appt Details Provider Name:Yadi craft, 02/20/2024 02:30:00 PM, [address] [facility] [address] [facility], [address], [place], [place], [id number], Provider Name:Yadi Holman Muna luana, 03/11/2024 11:00:00 AM, [facility] [address] [facility], [address], [place], [place], [id number], Insurance Providers Payer Name Payer Address Payer Phone Subscriber Number Group Number Insured Name Patient Relationship to Insured Coverage Start Date Coverage End Date MEDICARE PART B [address] [address] [place] [id number] JACOB YU Self - patient is the insured MEDICAID [employer] [address] [place] [id number] JACOB YU Self - patient is the insured MEDICAL (GENERAL) HISTORY Medical History History ICD Code Hypertension Type 2 Diabetes Mellitus Sleep Apnea; wears CPAP PVD Venous Stasis Dermatitis GERD Hyperlipidemia Surgical History Surgery Date(Month/Year) Abcess Tooth 1998 Cholecystectomy 01/2015
[2024-02-10] MEDS: ALBUTEROL 0.083% 2.5 MG/3 ML NEB IH (13:35)
--- NOTE | 2024-02-10 13:36 | PC.NURSE ---
Pt completed PFT and 6 Minute Walk Test without incident. Albuterol 0.083% given via HHN, per written protocol, Pt tolerated tx well.
== END 2024-02-10 23:59 | disposition home or self-care (01) ==
LOC: RT 12:46
PROVIDERS: PCP Family Medicine; Visit Provider Internal Medicine Pulmonary Disease
DX: R06.09 Other forms of dyspnea (principal)
CPT/HCPCS: 94060; 94618; 94726; 94729; J7613

== ENCOUNTER 2024-03-18 08:47 | Outpatient (CLI) | payer MEDICARE, MEDICAID, SELFPAY ==
--- NOTE | 2024-03-18 | MR_ITS ---
FINAL REPORT CLINICAL HISTORY: MEDIAL FOOT PAIN 24 ML PROHANCE GIVEN COMPARISON: None FINDINGS: Multiplanar MR imaging of the right foot was performed with and without contrast. There is a 7 mm osteochondral lesion in the medial talar dome, best seen on image #41 of sequence #12. No bony mass is identified. There is a partial tear of the peroneus longus tendon inferior to the lateral malleolus, with redundancy at the inferior margin of the lateral meniscus, that may represent a chronic tendon injury. No fluid collections are identified. The intrinsic muscles are unremarkable. There are no areas of abnormal contrast-enhancement. IMPRESSION: 7 mm osteochondral lesion of the medial talar dome as described. Partial tear of the peroneus longus tendon inferior to the lateral malleolus as described, which may be chronic. Reviewed, Interpreted and Dictated by Kahlil Jimenez MD Transcribed by Sunita Vital Authenticated and [facility]
--- OUTSIDE RECORDS SUMMARY | 2024-03-18 08:50 | XMS_ITS ---
Author Organization [facility] Address [address] [facility] [address] [facility] [address] [place] [id number] Care Team Providers Care Director Of Psychiatry Name Role Phone Suri Sanabria Primary Care Provider Yadi Lu [phone] REASON FOR VISIT Message Encounters Encounter Location Date Provider Diagnosis [facility] [address] [place] [id number] 03/17/2024 Yadi Lu PLAN OF TREATMENT Next Appt Details Provider Name:Yadi craft, 03/18/2024 11:00:00 AM, [address], [address], [place], [id number],
--- OUTSIDE RECORDS SUMMARY | 2024-03-18 08:50 | XMS_ITS ---
Author Organization [facility] Address [address] [facility] [address] [facility] [address] [place] [id number] Care Team Providers Care Inspector Wire Rope Name Role Phone Suri Sanabria Primary Care Provider [phone] Yadi Lu Unavailable [phone] ALLERGIES No Known Allergies REASON FOR VISIT 3 month follow up Encounters Encounter Location Date Provider Diagnosis [facility] [address] [facility] [address] [facility] [address] [place] [id number] 03/18/2024 Yadi Lu PLAN OF TREATMENT Next Appt Details Provider Name:Yadi craft, 03/18/2024 11:00:00 AM, [address] [facility] [address] [facility], [address], [place], [id number], History and Physical Notes * HPI (History of Present Illness) Category Sub-Category Detail Notes HPI Here for follow up on: 3 month f /u
--- OUTSIDE RECORDS SUMMARY | 2024-03-18 08:50 | XMS_ITS ---
Author Organization Unknown ALLERGIES AND ADVERSE REACTIONS No information ASSESSMENT No information CHIEF COMPLAINT No information MEDICATIONS No information OBJECTIVE DATA No information PHYSICAL EXAMINATION No information TREATMENT PLAN Planned Care Start Date Provider Encounter for Check-up [id number] [facility] PROBLEMS No information RESULTS No information REVIEW OF SYSTEMS No information SUBJECTIVE DATA No information VITAL SIGNS No information
--- OUTSIDE RECORDS SUMMARY | 2024-03-18 08:50 | XMS_ITS ---
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 Name Role Phone Suri Sanabria Primary Care Provider Yadi Lu Unavailable [phone] ALLERGIES No Known Allergies REASON FOR VISIT 2 week f/u Encounters Encounter Location Date Provider Diagnosis [facility] [address] [facility] [address] [facility] [address] [place] [id number] 02/20/2024 Yadi Lu PLAN OF TREATMENT Next Appt Details Provider Name:Yadi Toro y, 03/18/2024 11:00:00 AM, [address] [facility] [address] [facility], [address], [place], [id number], History and Physical Notes * HPI (History of Present Illness) Category Sub-Category Detail Notes Dermatology rash Pt is here for a 2 week f/u on his rash of the left arm. Pt sts Cephalexin and Mupirocin are
--- OUTSIDE RECORDS SUMMARY | 2024-03-18 08:50 | XMS_ITS | Patient Health Record ---
Author Organization [facility] Address [address] [place] [id number] Care Team Providers Care Cardiac Catheterization Technologist Name Role Phone Suri Sanabria Primary Care Provider [phone] Byron Jimbo Unavailable [phone] Yadi Lu Unavailable [phone] ALLERGIES No Known Allergies RESULTS Component Value Reference Range Notes Glycohemoglobin A1c (in hous e) Reviewed date:05/22/2023 09:54:51 AM Interpretation:A1C 8.3% Performing Lab: Notes/Report: A1C 8.3% glycohemoglobin 8.3% 5 - 6.5 % P-BNP (Brain Natriuretic Pep tide) Reviewed date:05/22/2023 09:54:51 AM Interpretation:Bnp 247 Performing Lab: Notes/Report: Test performed by [facility] [address] [place] [address] , [address], [place] [address] Cr Gotti MD, P[place] CLIA: [id number] proBrain Natriuretic Peptide 247 <125 pg/mL P-Comprehensive Metabolic Pa izabel (CMP) Reviewed date:05/22/2023 09:54:51 AM Interpretation:Glu 275, Alk Phos 266 Performing Lab: Notes/Report: Test performed by [facility] [address] [place] [address] Pedro Dewitt, [address], [place] [address] Cr Gotti MD, Poke In CLIA: [id number] Sodium 137 135-145 mEq/L Potassium 4.3 3.5-5.3 [...] 25 Performing Lab: Notes/Report: Test performed by [email or web address] [address] [place] [address] , [address] , [place] [address] Cr Gotti MD, Poke In CLIA: [id number] Cholesterol 111 <200 mg/dL Triglycerides 223 <150 [...] Interpretation:Normal Performing Lab: Notes/Report: Test performed by [email or web address], [address] , [place] [address] Cr Gotti MD, Poke In CLIA: [id number] PSA 0.66 <4.00 ng/mL Please note this is an ultrasensitive PSA assay with a lower limit of detection of 0.014 ng/mL. This test is performed by the [employer] ECLIA methodology. Values obtained with different assay methods or kits cannot be directly compared. Glycohemoglobin A1c (in hous e) Reviewed date:09/13/2023 10:27:33 AM Interpretation:7.6 Performing Lab: Notes/Report: 7.6 glycohemoglobin 7.6% 5 - 6.5 % P-Comprehensive Metabolic Pa izabel (CMP) Reviewed date:09/13/2023 10:27:33 AM Interpretation:gluc 150, alk phos 243 Performing Lab: Notes/Report: Test performed by [facility] [address] [place] [address] , [address], [place] [address] Cr Gotti MD, Poke In CLIA: [id number] Sodium 139 135-145 mEq/L Potassium 4.2 3.5-5.3 [...] <0.2-1.2 mg/dL A/G Ratio 2.0 1.1-2.5 mg/dL P-Lipid Panel Reviewed date:09/13/2023 10:27:33 AM Interpretation:trig 205, hdl 24 Performing Lab: Notes/Report: Test performed by [facility] [address] [place] [address] , [address], [place] [address] Cr Gotti MD, Poke In CLIA: [id number] Cholesterol 102 <200 mg/dL Triglycerides 205 <150 [...] Results: 37 Units: mg/dL % Change: -9% P-Microalbumin/Creatinine, R andom Urine Sample Reviewed date:09/13/2023 10:27:33 AM Interpretation:alb/creat unable to calculate Performing Lab: Notes/Report: Test performed by [email or web address] [address] [facility] , [address], [place] [address] Cr Gotti MD, Poke In EMMIEIA: [id number] Albumin/Creatinine Ratio, Urine See Comment 0-30 ug/mg Unable to calculate Urine Albumin/Creatinine Ratio when urine creatinine or urine albumin fall outside established reportable range. Microalbumin, Urine, Random <0.3 Creatinine, Urine 48.3 proBrain Natriuretic Peptide Reviewed date:09/13/2023 10:27:33 AM Interpretation:Normal Performing Lab: Notes/Report: Test performed by [facility] [address] [place] [address] [address], [place] [address] Cr Gotti MD, Poke In CLIA: [id number] proBrain Natriuretic Peptide 87 <300 pg/mL Please note the updated reference range values which are stratified by age. Positive >450 pg/mL Indeterminate 300-400 pg/mL Negative <300 pg/mL Glycohemoglobin A1c (in hous e) Reviewed date:12/13/2023 11:00:17 AM Interpretation:7.9 Performing Lab: Notes/Report: 7.9 glycohemoglobin 7.9% 5 - 6.5 % P-Comprehensive Metabolic Pa izabel (CMP) Reviewed date:12/13/2023 11:00:17 AM Interpretation:gluc 105, alk phos 355 Performing Lab: Notes/Report: Test performed by [facility] [address] [place] [address] [address], [place] [address] Cr Gotti MD, Poke In CLIA: [id number] Sodium 138 135-145 mmol/L Potassium 3.6 3.5-5.3 [...] 23 Performing Lab: Notes/Report: Test performed by [email or web address], [address] , [address] , [place] [address] Cr Gotti MD, Poke In CLIA: [id number] Cholesterol 93 <200 mg/dL Triglycerides 225 <150 [...] Interpretation:Normal Performing Lab: Notes/Report: Test performed by [facility] [address] [place] [address] , [address], [place] [address] Cr Gotti MD, Poke In CLIA: [id number] TSH reflex to FT4 1.93 0.43-5.25 mU/L CBC Venipuncture (in house) Reviewed date:12/13/2023 11:00:17 [...] - 38 platlet 151 100 - 400 Echocardiogram Reviewed date:06/20/2023 01:07:27 PM Interpretation: Performing Lab: Notes/Report: REASON FOR REFERRAL Diagnosis 1 Venous stasis dermat itis of both lower extremities (I87.2) Referral Organization [facility] Referring Provider First Name Yadi Referring Provider Last Name Tabitha Referring Provider Speciality Physician Billet Header Referred Provider Physical Therapy, . Referred Provider Specialty Physical The rapist General Notes Yadi Lu 12/10 10:25:10 PM > Pt needs an appt with lymphedema and wound care, Rosemary Liang 12/12/2023 9:05:25 AM > faxed to scheduling 12/12/23, ToniaGeeta 12/13/2023 10:25:36 AM > pt informed of [...] once a day for 90 days Active Stool [...] 1 tab(s) orally once a day Not-Taking metFORMIN HCl 1000 MG 1 tab(s) orally 2 times a day for 90 days Active Pantoprazole Sodium 40 MG 1 tab(s) [...] 04/11/2020 Administered xFlu shot- 6months-36 months of weg-CYFB-JTPU-trivalent Unknown 03/14/2012 Administered xFluzone (6mos and older)-trivalent Unknown 03/10/2009 Administered SOCIAL HISTORY Sex Assigned At : Social History Observation Description Sex Assigned At Unknown PROBLEMS Problem Type ICD Code Onset Dates Problem Status W/U Status Risk SNOMED Code Notes Problem Hyperlipidemia (E78.5) Active confirmed Hyperlipidemia (36683397) Problem Essential hypertension (I10) Active confirmed 74449835 Problem Obesity (E66.9) Active confirmed Obesit y (985320800) Problem Lymphedema (I89.0) Active confirmed 234 031148 Problem Mixed hyperlipidemia (E78.2) Active confirmed 729693406 Problem Unspecified urinary incontinence (R32) Active confirmed 369887988 Problem Peripheral vascular disease (I73.9) Active confirmed 408681585 Problem GERD without esophagitis (K21.9) Active confirmed 867883907 Problem Obstructive sleep apnea syndrome (G47.33) Active confirmed 19571177 Problem Gastroesophageal reflux disease, esophagitis presence not specified (K21.9) Active confirmed 692444776 Problem BMI 40.0-44.9, adult (Z68.41) Active confirmed Body mass ind ex 40+ - morbidly obese (017728171) Problem Hyperlipidemia, unspecified hyperlipidemia type (E78.5) Active confirmed 76961217 Problem Carpal tunnel syndrome of left wrist (G56.02) Active confirmed [id number] Problem Hypersomnia (G47.10) Active confirmed 42847156 Problem Type 2 diabetes mellitus with diabetic polyneuropathy, without long-term current use of insulin (E11.42) Active confirmed 39229679 Problem Venous stasis dermatitis of both lower extremities (I87.2) Active confirmed 17074413 Problem Bee sting allergy (Z91.030) Active confirmed 879280126 Problem Night-waking disorder (G47.20) Active confirmed 339245460 Problem Gastroesophageal reflux disease, unspecified whether esophagitis present (K21.9) Active confirmed 550446765 VITAL SIGNS Heart Rate 114 /min 02/06/2024 Blood pressure diastolic 60 mm Hg 02/06/2024 Height 69 in 02/06/2024 Blood pressure systolic 110 mm Hg 02/06/2024 Weight 260.4 lbs 02/06/2024 BMI 38.45 kg/m2 02/06/2024 Encounters Encounter Location Date Provider Diagnosis [facility] [address] [place] [id number] 05/15/2023 Yadi Crowdy Essential hypertensi on I10 ; Peripheral vascular disease I73.9 ; Type 2 diabetes mellitus with diabetic polyneuropathy, without long-term current use of insulin E11.42 ; Venous stasis dermatitis of both lower extremities I87.2 ; Lower extremity edema R60.0 ; GERD without esophagitis K21.9 ; Skin infection L08.9 ; Hyperlipidemia E78.5 ; Obesity E66.9 and Screening PSA (prostate specific antigen) Z12.5 [facility] [address] [place] [id number] 09/11/2023 Yadi Crowdy Essential hypertensi on I10 ; Peripheral vascular disease I73.9 ; Type 2 diabetes mellitus with diabetic polyneuropathy, without long-term current use of insulin E11.42 ; Venous stasis dermatitis of both lower extremities I87.2 ; Lower extremity edema R60.0 ; GERD without esophagitis K21.9 ; Skin infection L08.9 ; Hyperlipidemia E78.5 and Obesity E66.9 [facility] [address] [place] [id number] 12/11/2023 Yadi Crowdy Essential hypertensi on I10 ; Peripheral vascular disease I73.9 ; Type 2 diabetes mellitus with diabetic polyneuropathy, without long-term current use of insulin E11.42 ; Venous stasis dermatitis of both lower extremities I87.2 ; Lower extremity edema R60.0 ; GERD without esophagitis K21.9 ; Hyperlipidemia E78.5 and Obesity E66.9 [facility] [address] [place] [id number] 10/01/2023 Jimbo [place] Type 2 diabetes darren itus with diabetic polyneuropathy, without long-term current use of insulin E11.42 [facility] [address] [place], [place] [id number] 03/18/2024 Yadi Lu [facility] [address] [place], [place] [id number] 02/06/2024 Yadi Tabitha Left arm cellulitis L03.114 [facility] [address] [place], [place] [id number] 02/20/2024 Yadi Lu [facility] [address] [place], [place] [id number] 05/16/2023 Yadi Lu SOB (shortness of breath) R06.02 [facility] [address] [place], [place] [id number] 06/20/2023 Yadi Earlylilia [facility] [address] [place], [place] [id number] 09/13/2023 Yadi Tabitha Type 2 diabetes darren itus with diabetic polyneuropathy, without long-term current use of insulin E11.42 [facility] [address] [place], [place] [id number] 12/13/2023 Yadi Lu [facility] [address] [place] [id number] 01/22/2024 Yadi Lu [facility] [address] [place] [id number] 01/27/2024 Suri Sanabria [facility] [address] [place] [id number] 02/06/2024 Suri Sanabria [facility] [address] [place], [place] [id number] 03/17/2024 Yadi Lu ASSESSMENTS Encounter Date Diagnosis Assessment Notes Treatment Notes Treatment Clinical Notes 05/15/2023 Essential hypertension (ICD-10 - I10) Will monitor BP at home and call if readings are elevated. 05/15/2023 Peripheral vascular disease (ICD-10 - I73.9) 09/13/2023 Type 2 diabetes mellitus with diabetic polyneuropathy, without long-term current use of insulin (ICD-10 - E11.42) 12/11/2023 Essential hypertension (ICD-10 - I10) 12/11/2023 Peripheral vascular disease (ICD-10 - I73.9) 02/06/2024 Left arm cellulitis (ICD-10 - L03.114) 10/01/2023 Type 2 diabetes mellitus with diabetic polyneuropathy, without long-term current use of insulin (ICD-10 - E11.42) Need report from recent podiatry evaluation to complete form 09/11/2023 Essential hypertension (ICD-10 - I10) 09/11/2023 Peripheral vascular disease (ICD-10 - I73.9) 05/16/2023 SOB (shortness of breath) (ICD-10 - R06.02) 09/11/2023 Type 2 diabetes mellitus with diabetic polyneuropathy, without long-term current use of insulin (ICD-10 - E11.42) discussed dietary changes 12/11/2023 Type 2 diabetes mellitus with diabetic [...] 05/15/2023 GERD without esophagitis (ICD-10 - K21.9) 09/11/2023 GERD without esophagitis (ICD-10 - K21.9) 12/11/2023 GERD without esophagitis (ICD-10 - K21.9) 09/11/2023 Skin infection (ICD-10 - L08.9) Has been wrapping his legs and apply silvadene and sometimes mupirocin. He does not need anymore silvadene. 05/15/2023 Skin infection (ICD-10 - L08.9) Has been wrapping his legs and apply silvadene and sometimes mupirocin. He does not need anymore silvadene. 12/11/2023 Hyperlipidemia (ICD-10 - E78.5) 05/15/2023 Hyperlipidemia (ICD-10 - E78.5) 12/11/2023 Obesity (ICD-10 - E66.9) 09/11/2023 Hyperlipidemia (ICD-10 - E78.5) 09/11/2023 Obesity (ICD-10 - E66.9) 05/15/2023 Obesity (ICD-10 - E66.9) 05/15/2023 Screening PSA (prostate specific antigen) (ICD-10 - Z12.5) PLAN OF TREATMENT Pending Test Test Name Order Date LC-bnp 09/06/2021 P-BNP (Brain Natriuretic Peptide) 2023 Next Appt Details Provider Name:Yadi Toro luana, 03/18/2024 11:00:00 AM, [address], [address], [place], [place], [id number], Insurance Providers Payer Name Payer Address Payer Phone Subscriber Number Group Number Insured Name Patient Relationship to Insured Coverage Start Date Coverage End Date MEDICARE PART B [address] [address] [place] [address] [id number] JACOB YU Self - patient is the insured MEDICA[employer] [address] [place] [id number] GIGI JACOB Self - patient is the insured MEDICAL (GENERAL) HISTORY Medical History History ICD Code Hypertension Type 2 Diabetes Mellitus Sleep Apnea; wears CPAP PVD Venous Stasis Dermatitis GERD Hyperlipidemia Surgical History Surgery Date(Month/Year) Abcess Tooth 1998 Cholecystectomy 01/2015
[2024-03-18 09:24] LABS: Basophils # 0.1 K/mm3 (0-0.2); Basophils % 1.1 % (0.1-2.0); Chloride 102 mmol/L (98-107); Eosinophils # 0.2 K/mm3 (0.0-0.4); Eosinophils % 2.6 % (0.1-12.0); Hematocrit 43.7 % (42.0-52.0); Hemoglobin 14.9 g/dL (14.1-18.0); Lymphocytes # 1.9 K/mm3 (0.7-4.5); Lymphocytes % 28.5 % (10-50); Mean Corpuscular HGB Conc 34.2 g/dL (31.8-35.4); Mean Corpuscular Hemoglobin 29.4 pg (27.0-31.2); Mean Platelet Volume 7.8 fl (7.4-10.4); Monocytes # 0.4 K/mm3 (0.1-1.0); Monocytes % 5.3 % (1.7-9.3); Neutrophils # 4.1 K/mm3 (1.8-7.8); Neutrophils % 62.4 % (37.0-80.0); Platelet Count 189 K/mm3 (142-424); Potassium 4.3 mmoL/L (3.5-5.1); Red Blood Count 5.08 M/mm3 (4.60-6.20); Red Cell Distribution Width 14.9 % (11.5-17.5); Sodium 137 mmol/L (136-145); White Blood Count 6.5 K/mm3 (4.8-10.8)
[2024-03-18 09:26] LABS: Alanine Aminotransferase 37 U/L (12-78); Anion Gap 14.3 mEq/L (5-15); Aspartate Amino Transferase 36 U/L (17-59); Blood Urea Nitrogen 20 mg/dl (9-20); Carbon Dioxide 25 mmol/L (22.0-30.0); Estimated Glomerular Filt Rate 91 ml/min (>60); GFR (African American) 110 ML/MIN (>60)
[2024-03-18 09:27] LABS: Albumin/Globulin Ratio 1.4 (1.1-1.8); Alkaline Phosphatase 267 U/L (38-126); Bilirubin,Total 0.5 mg/dl (0.2-1.3); Calcium 9.9 mg/dl (8.4-10.2); Chol/HDL Ratio 4.6 (1-3.5); Cholesterol 105 mg/dl (140-200); Globulin 3.5 g/dL (1.3-3.2); Glucose 195 mg/dl (74-100); HDL Cholesterol 23 mg/dl (40-60); Total Protein,Serum 8.5 g/dl (6.3-8.2); Triglycerides 243 mg/dl (30-150); VLDL Cholesterol 49 mg/dL (0-40)
[2024-03-18 09:38] LABS: Direct LDL Cholesterol 33.02 mg/dL (100-129)
[2024-03-18 09:44] LABS: Hemoglobin A1C 8.9 % (4.0-6.0)
[2024-03-18] MEDS: SODIUM CHLORIDE 0.9% 10ML SYR (RAD ONLY) 10 ML IV (10:30)
[2024-03-18] MEDS: GADOTERIDOL INJ 10ML SYRINGE 4 ML IV (10:31)
[2024-03-18] MEDS: GADOTERIDOL INJ 20ML SYRINGE 20 ML IV (10:31)
== END 2024-03-18 23:59 | disposition home or self-care (01) ==
PROVIDERS: Physician Assistant; PCP Family Medicine; Visit Provider Nurse Practitioner
DX: M79.641 Pain in right hand (principal); E78.2 Mixed hyperlipidemia; E11.42 Type 2 diabetes mellitus with diabetic polyneuropathy
CPT/HCPCS: 36415; 73720; 80053; 80061; 83036; 85025; A9576

== ENCOUNTER 2024-05-22 15:00 | Outpatient (RCR) | payer MEDICARE, MEDICAID, SELFPAY ==
--- NOTE | 2024-04-14 16:23 | HMH.PTOPWND ---
Rehab Outpt Wound Evaluation Rehab OP Wound Evaluation Start: 04/14/24 16:06 Freq: Status: Active Protocol: Document 04/14/24 16:06 DOMENICO (Rec: 04/14/24 16:22 PHOMARGA [id number]) E-signed By Cesario Joyce, PT Subjective/History History History This is the initial PT wound care eval for Rex House , 48 yowm who presents with c/ o B Lower Leg wounds present x ~ 6 mos with insidious onset of symptoms. He reports multiple open sores that began as blisters and he lanced them at home to allow them to drain. He reports no c/o pain at this time and no tenderness to palpation. He appears pre- occupied with recent test results concerning his R ankle instability. He has PMH of HTN, HLD, DM, PVD, sleep apnea , CVI. Subjective Subjective Pt with 1+ pitting edema to B lower legs. Multiple open sores noted (~20 in total over B lower legs.) Currently minimal drainage on B lower legs. New diagnosis of cancer in past 12 No months? Wound Eval Wound Left Lower Leg Wound Type Stasis Ulcer Is This a Chronic Wound Yes Wound Length (cm) 2.0 Wound Width (cm) 1.5 Wound Depth (cm) 0.1 Wound Bed Appearance [place] Wound Margins Description Well Defined Surrounding Tissue Appearance [place] Edema Type Pitting Edema Degree 1+ Query Text:1+ Trace, Barely Detectable, Rebound 15-30 seconds 2+ Moderate, Slight Indentation, Rebound 10-20 seconds 3+ Deep, Deeper Indentation, Rebound > 30 seconds 4+ Very Deep, Rebound > 60 seconds Drainage Description Serosanguineous Drainage Amount Small Primary Dressing Unna Boot Wound Debridement Method Gauze,Mechanical Wound Debridement Amount of Tissue Minimal Removed Dressing Change Patient Tolerance Tolerated Well Right Lower Leg Wound Type Stasis Ulcer Is This a Chronic Wound Yes Wound Length (cm) 1.0 Wound Width (cm) 1.5 Wound Depth (cm) 0.1 Wound Bed Appearance [place] Wound Margins Description Well Defined Surrounding Tissue Appearance [place] Edema Type Pitting Edema Degree 1+ Query Text:1+ Trace, Barely Detectable, Rebound 15-30 seconds 2+ Moderate, Slight Indentation, Rebound 10-20 seconds 3+ Deep, Deeper Indentation, Rebound > 30 seconds 4+ Very Deep, Rebound > 60 seconds Drainage Description Serosanguineous Drainage Amount Small Primary Dressing Unna Boot Wound Debridement Method Gauze,Mechanical Dressing Change Patient Tolerance Tolerated Well Wound Problems/Impairments Impairments Problems/Impairmments Increased Edema,Lymphedema Present,Wound Care Needs, Impaired Self Care/Self Management Prognosis Rehab Potential Good Comment Skilled therapy is indicate to reduce total wound surface area and return pt to PLOF. Clinical Impression Consistent with Diagnosis Yes Short Term Goals Number of Weeks 2 Decrease Wound Area Yes: by 25% total Architectural Modeler Goals Number of Weeks 4 Decrease Edema Yes: No pititng edema to B lower legs Decrease Wound Area Yes: by 75% total Patient to be Ind w/ HEP Yes Outpatient Therapy Plan of Care Treatment Plan May Include Therapeutic Exercise Including Home Yes Exercise Program Manual Therapy Techniques Yes Neuromuscular Re-education Yes Therapeutic Activities to Return to Yes Previous Functional/Work Level ADL/Self Care Education Yes Orthotics/Bracing/Splinting Yes Manual Lymphatic Drainage Yes Wound Care Yes Eval/Re-Eval Yes Frequency Times per week 1-2 Duration Number of Weeks 4 Addendums This patient is a candidate for social No or vocational rehab? Patient/Guardian verbally acknowledges Yes understanding of treatment program and consents to further treatment? Patient/Guardian verbally acknowledges Yes understanding of diagnosis, prognosis and goals for treatment? Eval Complexity PT Charges 66255 - High Complexity PHYSICIAN CERTIFICATION: I certify the specified therapy services for Rex [facility] are required, authorized, and reviewed every 30 days.
== END 2024-05-22 23:59 | disposition home or self-care (01) ==
LOC: PT 15:00
PROVIDERS: Visit Provider Physician Assistant
DX: R60.0 Localized edema (principal); S81.801A Unspecified open wound, right lower leg, initial encounter; S81.802A Unspecified open wound, left lower leg, initial encounter
CPT/HCPCS: 29580; 97140; 97163; 97597; 97760

== ENCOUNTER 2024-08-12 12:14 | Outpatient (CLI) | payer MEDICARE, MEDICAID, SELFPAY ==
--- NOTE | 2024-08-12 12:31 | XR_ITS ---
FINAL REPORT TECHNIQUE: 3 views right ankle CLINICAL HISTORY: ankle pain..drop ankle...xray were done weight bearing COMPARISON: None FINDINGS: RIGHT ANKLE: 3 images of the right ankle were obtained. There is no evidence of fracture or dislocation. The joint spaces are intact. There is no soft tissue abnormality identified. IMPRESSION: No acute bony abnormality. Reviewed, Interpreted and Dictated by Kahlil Jimenez MD Transcribed by Sunita Vital Authenticated and [facility]
[2024-08-12 12:39] LABS: Basophils # 0.1 K/mm3 (0-0.2); Basophils % 0.8 % (0.1-2.0); Eosinophils # 0.1 K/mm3 (0.0-0.4); Eosinophils % 1.6 % (0.1-12.0); Hematocrit 46.6 % (42.0-52.0); Hemoglobin 15.5 g/dL (14.1-18.0); Lymphocytes # 1.9 K/mm3 (0.7-4.5); Lymphocytes % 25.2 % (10-50); Mean Corpuscular HGB Conc 33.3 g/dL (31.8-35.4); Mean Corpuscular Hemoglobin 28.2 pg (27.0-31.2); Mean Corpuscular Volume 84.9 fl (80-94); Mean Platelet Volume 10.1 fl (7.4-10.4); Monocytes # 0.4 K/mm3 (0.1-1.0); Monocytes % 5.1 % (1.7-9.3); Neutrophils # 5.1 K/mm3 (1.8-7.8); Neutrophils % 66.5 % (37.0-80.0); Platelet Count 200 K/mm3 (142-424); Red Blood Count 5.49 M/mm3 (4.60-6.20); Red Cell Distribution Width 14.4 % (11.5-17.5); White Blood Count 7.7 K/mm3 (4.8-10.8)
== END 2024-08-12 23:59 | disposition home or self-care (01) ==
PROVIDERS: PCP Family Medicine; Visit Provider Physician Assistant
DX: I10 Essential (primary) hypertension (principal); M25.371 Other instability, right ankle; M25.471 Effusion, right ankle; M25.571 Pain in right ankle and joints of right foot
CPT/HCPCS: 36415; 73610; 85025

== ENCOUNTER 2024-10-06 09:37 | Outpatient (CLI) | payer MEDICARE, MEDICAID, SELFPAY ==
--- NOTE | 2024-10-06 09:30 | FL_ITS ---
FINAL REPORT CLINICAL HISTORY: COPD - Resp Issues - Former smoker DAP: 391.22 Time: 0:27 sec FINDINGS: SNIFF TEST HISTORY: Shortness of breath. COPD. FINDINGS: A sniff test was performed. No paradoxical movement was noted with either diaphragm. Fluoroscopy time: 27 seconds Fluoro dose: 391.22 DAP in [employer] reviewed , interpreted and dictated by Dr. Lizzie Cisneros. Transcribed by Cory Harding PA-C. Reviewed, Interpreted and Dictated by Lizzie Cisneros MD Transcribed by SHANELLE Melton Authenticated and [facility]
[2024-10-06] MEDS: ALBUTEROL 0.083% 2.5 MG/3 ML NEB IH (10:54)
== END 2024-10-06 23:59 | disposition home or self-care (01) ==
LOC: RAD 09:39
PROVIDERS: PCP Family Medicine; Visit Provider Internal Medicine Pulmonary Disease
DX: J98.6 Disorders of diaphragm (principal); J44.9 Chronic obstructive pulmonary disease, unspecified
CPT/HCPCS: 76000; 94010; J7613

== ENCOUNTER 2025-02-08 08:51 | Outpatient (CLI) | payer MEDICARE, MEDICAID, SELFPAY ==
--- OUTSIDE RECORDS SUMMARY | 2024-02-20 10:30 | XMS_ITS ---
Author Organization [facility] Address [address] [facility] [address] [facility] [address] [place] [id number] Care Team Providers Care Welder Assembler Name Role Phone Suri Sanabria Primary Care Provider [phone] Yadi Lu Unavailable [phone] Allergies No Known Allergies REASON FOR VISIT 2 week f/u Encounters Encounter Location Date Provider Diagnosis [facility] [address] [facility] [address] [facility] [address] [place] [id number] 02/20/2024 Yadi Lu Plan Of Treatment Next Appt Details Provider Name:Yadi Toro y, 02/11/2025 10:00:00 AM, [address] [facility] [address] [facility], [address], [place], [place], [id number], Progress Notes * JACOB YUDOB: [birth year] (49 yo M)Acc No.[id number]:02/20/2024 Progress Notes Patient: JACOB RASMUSSEN Provider: SHANELLE Chiu :1975 A ge:48 Y S ex:Male Date:02/20/2024 Address:[address], [id number] Pcp:Suri Sanabria Subjective: * Chief Complaints: * 1 . 2 week f/u. * HPI: D ermatology: 48 year old male presents with c/o rash P t is here for a 2 week f/u on his rash of the left arm. Pt sts Cephalexin and Mupirocin are . * ROS: D ERMATOLOGY: no R reema. n o H aquilino. G ASTROENTEROLOGY: no N ausea. n o V omiting. n o D iarrhea.? U ROLOGY: no D ifficulty urinating. n o B lood in urine. * Medical History: H ypertension, Type 2 Diabetes Mellitus, Sleep Apnea; wears CPAP, PVD, Venous Stasis Dermatitis, GERD, Hyperlipidemia. * Surgical History: A bcess Tooth 1998, Cholecystectomy 01/2015. * Family History: F ather: . M other: alive 67 yrs. 2 brother(s) , 1 sister(s) . . * Social History: C URRENT TOBACCO USE S moking Status: P atient does NOT smoke. C affeine: yes, frequency:coffee, tea. Home smoke detector use: yes. Marital Status: Single. Alcohol: No. * Allergies: N .K.D.A. Objective: * Vitals: Assessment: Plan: * Treatment: * Images: Billing Information: * Visit Code: * Procedure Codes: * Electronic signature of SHANELLE Gay on 02/08/2025 at 09:05 AM EDT Sign off status: Pending * Provider: SHANELLE Chiu Date: 0 02/20/2024 Generated for Pascual davis/Nolan/[place] on: 02/08/2025 09:05 AM EDT History and Physical Notes * HPI (History of Present Illness) Category Sub-Category Detail Notes Category Not es Dermatology rash Pt is here for a 2 week f/u on his rash of the left arm. Pt sts Cephalexin and Mupirocin are
--- OUTSIDE RECORDS SUMMARY | 2024-08-12 09:30 | XMS_ITS ---
Author Organization [facility] Address [address] [facility] [address] [place] [id number] Care Team Providers Care Gristmiller Name Role Phone Suri Sanabria Primary Care Provider Yadi Lu Unavailable [phone] Allergies No Known Allergies Results Component Value Reference Range Notes P-Microalbumin/Creatinine, R andom Urine Sample Reviewed date:08/13/2024 08:10:19 AM Interpretation: Performing Lab: Notes/Report: Test performed by [facility] [address] [place] [address] , [address], [place] [address] Cr Gotti MD, Manager Primary Care CLIA: [id number] Albumin/Creatinine Ratio, Urine <5.8 0-30 ug/m g Microalbumin, Urine, Random <0.3 Creatinine, Urine 51.2 REASON FOR VISIT 3 month check and AWV, Due for Diabetic Eye Exam Medications Medication SIG (Take, Route, Frequency, Duration) Notes Start Date End Date Status Silver sulfADIAZINE 1 % APPLY TOPICALLY TO THE AFFECTED AREA(S) TWICE DAILY; Duration: 30 Active Pantoprazole Sodium 40 MG 1 tab(s) orall y once a day; Duration: 90 days Active Lisinopril-hydroCHLOROthiazi de 10-12.5 MG 1 tab(s) orally once a day; Duration: 90 days Active EPINEPHrine 0.3 MG/0.3ML INJECT THE CONT ENTS OF 1 AUTO-INJECTOR INTRAMUSCULARLY ONCE NEEDED FOR ANAPHYLAXIS REACTION; Duration: 1 Active Mupirocin 2 % 1 application Assistant Tennis Coach ally Twice a day 02/06/2024 Active Benadryl Allergy 25 MG 1 tab(s) orally o nce daily prn Active Aspirin Adult Low Dose 81 MG 1 tab(s) or ally once a day Active Tylenol PM Extra Strength 500-25 MG 1 tablet at bedtime as needed Orally Once a day at bedtime Active CPAP machine and supplies - as directed as directed Active Tylenol Extra Strength 500 MG 1 tablet as needed Orally daily as needed Active Mounjaro 7.5 MG/0.5ML as directed Subcut aneous once a week 08/12/2024 Active metFORMIN HCl 1000 MG 1 tab(s) orally 2 times a day; Duration: 90 days Active Jardiance 10 MG 1 tablet Orally Once a day; Duration: 30 day(s) 04/02/2024 Active Glimepiride 4 MG 1/2 tab orally once a day Active Atorvastatin Calcium 10 mg TAKE ONE TABL ET BY MOUTH EVERY DAY; Duration: 90 Active hydroCHLOROthiazide 12.5 MG 1 tab(s) ora lly once a day; Duration: 90 days Active Fenofibrate 145 mg TAKE ONE TABLET BY M OUTH EVERY DAY; Duration: 90 Active Problems Problem Type SNOMED Code ICD Code Onset Dates Problem Status W/U Status Risk Notes Problem Obese class II ([id number]) BMI 38.0-38.9,a dult (Z68.38) Active confirmed Vital Signs Blood pressure systolic 110 mm Hg 08/13/19 25 Blood pressure diastolic 70 mm Hg 025 Heart Rate 99 /min 08/12/2024 Height 69 in 08/12/2024 Weight 262.6 lbs 08/12/2024 BMI 38.78 kg/m2 08/12/2024 Encounters Encounter Location Date Provider Diagnosis [facility] [address] [facility] [address] [place], [place] [id number] 08/12/2024 Yadi Lu Adult general medica l examination Z00.00 ; Type 2 diabetes mellitus with diabetic polyneuropathy, without long-term current use of insulin E11.42 ; Essential hypertension I10 ; Peripheral vascular disease I73.9 ; Venous stasis dermatitis of both lower extremities I87.2 ; GERD without esophagitis K21.9 ; Hyperlipidemia, unspecified hyperlipidemia type E78.5 ; Lower extremity edema R60.0 ; Bee sting allergy Z91.030 ; Obstructive sleep apnea syndrome G47.33 ; Mixed hyperlipidemia E78.2 and BMI 38.0-38.9,adult Z68.38 Assessments Encounter Date Diagnosis (ICD Code) Assessment Notes Treatment Notes Treatment Clinical Notes Section Notes 08/12/2024 Adult general medical examination (ICD-10 - Z00.00) Patient instructed to return to office Annually for Annual Wellness Visits to include annual screenings of Pain assessment, Functional Ability assessment, Cognitive Ability assessment, Fall Risk assessment, Depression screening and Bladder control screening. 08/12/2024 Type 2 diabetes mellitus with diabetic polyneuropathy, without long-term current use of insulin (ICD-10 - E11.42) Will increase mounjaro dose and decrease glimepiride dose. 08/12/2024 Essential hypertension (ICD-10 - I10) 08/12/2024 Peripheral vascular disease (ICD-10 - I73.9) 08/12/2024 Venous stasis dermatitis of both lower extremities (ICD-10 - I87.2) 08/12/2024 GERD without esophagitis (ICD-10 - K21.9) 08/12/2024 Hyperlipidemia, unspecified hyperlipidemia type (ICD-10 - E78.5) 08/12/2024 Lower extremity edema (ICD-10 - R60.0) 08/12/2024 Bee sting allergy (ICD-10 - Z91.030) 08/12/2024 Obstructive sleep apnea syndrome (ICD-10 - G47.33) 08/12/2024 Mixed hyperlipidemia (ICD-10 - E78.2) 08/12/2024 BMI 38.0-38.9,adult (ICD-10 - Z68.38) Plan Of Treatment Medication Medication Name Sig Start Date Stop Date Notes Pantoprazole Sodium 40 MG 1 tab(s) orall y once a day; Duration: 90 days Lisinopril-hydroCHLOROthiazi de 10-12.5 MG 1 tab(s) orally once a day; Duration: 90 days Mounjaro 5 MG/0.5ML INJECT THE CONTENTS OF 1 PEN (5 MG / 0.5ML) SUBCUTANEOUSLY ONCE A WEEK Mounjaro 7.5 MG/0.5ML as directed Subcut aneous once a week 08/12/2024 metFORMIN HCl 1000 MG 1 tab(s) orally 2 times a day; Duration: 90 days Jardiance 10 MG 1 tablet Orally Once a day; Duration: 30 day(s) 04/02/2024 Glimepiride 4 MG 1/2 tab orally once a day Atorvastatin Calcium 10 mg TAKE ONE TABL ET BY MOUTH EVERY DAY; Duration: 90 hydroCHLOROthiazide 12.5 MG 1 tab(s) ora lly once a day; Duration: 90 days Fenofibrate 145 mg TAKE ONE TABLET BY M OUTH EVERY DAY; Duration: 90 Treatment Notes Assessment Notes Adult general medical examination Patien t instructed to return to office Annually for Annual Wellness Visits to include annual screenings of Pain assessment, Functional Ability assessment, Cognitive Ability assessment, Fall Risk assessment, Depression screening and Bladder control screening. Type 2 diabetes mellitus wit h diabetic polyneuropathy, without long-term current use of insulin Will increase mounjaro dose and decrease glimepiride dose. Next Appt Details Follow Up: As directed by , Reason: Provider Name:Yadi craft, 02/11/2025 10:00:00 AM, [address] [facility] [address] [facility], [address] , [place], [place], [id number], Progress Notes * JACOB YUDOB: [birth year] (49 yo M)Acc No.[id number]:08/12/2024 Annual Wellness Visit Patient: JACOB RASMUSSEN Provider: SHANELLE Chiu :1975 A ge:49 Y S ex:Male Date:08/12/2024 Address:[address] [place] [address], [place], [id number] Pcp:Suri Sanabria Subjective: * Chief Complaints: * 1 . 3 month check and AWV. 2. Due for Diabetic Eye Exam. * HPI: H PI: Patient is here today for a scheduled 3 month check up and?a Medicare Annual Wellness Visit. Pt states he had labs done at [facility]. Pt is not fasting. * ROS: O PTHALMOLOGY: Negative for d enies vision issues. * Medical History: H ypertension, Type 2 Diabetes Mellitus, Sleep Apnea; wears CPAP, PVD, Venous Stasis Dermatitis, GERD, Hyperlipidemia. * Surgical History: A bcess Tooth 1998, Cholecystectomy 01/2015. * Family History: F ather: . M other: alive 68 yrs. 2 brother(s) , 1 sister(s) . . * Social History: C URRENT TOBACCO USE S moking Status: P atient does NOT smoke. C affeine: yes, frequency:coffee, tea. Home smoke detector use: yes. Marital Status: Single. Alcohol: No. * Medications: T aking Tylenol Extra Strength 500 MG Tablet 1 tablet as needed Orally daily as needed , Taking Tylenol PM Extra Strength 500-25 MG Tablet 1 tablet at bedtime as needed Orally Once a day at bedtime , Taking CPAP machine and supplies - - as directed as directed , Taking Benadryl Allergy 25 MG Tablet 1 tab(s) orally once daily prn , Taking Aspirin Adult Low Dose 81 MG Tablet Delayed Release 1 tab(s) orally once a day , Taking Pantoprazole Sodium 40 MG Tablet Delayed Release 1 tab(s) orally once a day , Taking Lisinopril-hydroCHLOROthiazide 10-12.5 MG Tablet 1 tab(s) orally once a day , Taking Glimepiride 4 MG Tablet 1 tab(s) orally once a day , Taking hydroCHLOROthiazide 12.5 MG Tablet 1 tab(s) orally once a day , Taking EPINEPHrine 0.3 MG/0.3ML Solution Auto-injector INJECT THE CONTENTS OF 1 AUTO-INJECTOR INTRAMUSCULARLY ONCE NEEDED FOR ANAPHYLAXIS REACTION , Taking Mupirocin 2 % Ointment 1 application Externally Twice a day , Taking metFORMIN HCl 1000 MG Tablet 1 tab(s) orally 2 times a day , Taking Jardiance 10 MG Tablet 1 tablet Orally Once a day , Taking Atorvastatin Calcium 10 mg Tablet TAKE ONE TABLET BY MOUTH EVERY DAY , Taking Fenofibrate 145 mg Tablet TAKE ONE TABLET BY MOUTH EVERY DAY , Taking Mounjaro 5 MG/0.5ML Solution Auto-injector INJECT THE CONTENTS OF 1 PEN (5 MG / 0.5ML) SUBCUTANEOUSLY ONCE A WEEK , Taking Silver sulfADIAZINE 1 % Cream APPLY TOPICALLY TO THE AFFECTED AREA(S) TWICE DAILY , Medication List reviewed and reconciled with the patient * Allergies: N .K.D.A. Objective: * Vitals: W t:262.6, Temp:98.2, BP:110/70, HR:99, Nurse:GRADY, Ht: 69, BMI:38.78. * Examination: G eneral Examination: General Appearance: N AD. H EENT: u nremarkable.?Oral cavity: n o lesions, mucosa moist and WNL, no erythema. N hira: s upple, no lymphadenopathy. C hest: n ormal shape and expansion. H eart: R SR. L ungs: c lear to auscultation. A bdomen: bowel sounds present, soft and nontender. N eurologic Exam: I ntact, gait normal. S kin: n ormal, no rash. P eripheral pulses: n ormal (2+) bilaterally. E xtremities: n o leg edema. * Physical Examination: G ENERAL: Pain Assessment: P ain level: 8, on a scale of 0-10 (with 10 being extreme pain). F unctional Status Assessment: P atient response to question of how often physical health interferes with daily activities: occasionally . Able to perform ADLs-including meal preparation, grocery shopping, housework, laundry, taking medications or handling finances. Cognitive Status: alert and oriented. Ambulation Status: Fully ambulatory . F all Risk Assessment: I ndependant in ambulation, adequate lighting in home. Patient has fallen a nd had trouble walking within the past 12 months. D epression Screening: D enies depressed mood or anxiety. Describes emotional health as: downhearted/blue. B ladder Control Screening: S mall problem. Assessment: * Assessment: 1. A dult general medical examination - Z00.00 (Primary) 2 . T ype 2 diabetes mellitus with diabetic polyneuropathy, without long-term current use of insulin - E11.42 ? 3 . E ssential hypertension - I10 4 . P eripheral vascular disease - I73.9 5 . V enous stasis dermatitis of both lower extremities - I87.2 ? 6 . G ERD without esophagitis - K21.9 7 . H yperlipidemia, unspecified hyperlipidemia type - E78.5 8 . L ower extremity edema - R60.0 9. B ee sting allergy - Z91.030 1 0. O bstructive sleep apnea syndrome - G47.33 1 1. M ixed hyperlipidemia - E78.2 1 2. B CA 38.0-38.9,adult - Z68.38 Plan: * Treatment: 2. T ype 2 diabetes mellitus with diabetic polyneuropathy, without long-term current use of insulin Decrease Glimepiride Tablet, 4 MG, 1/2 tab, orally, once a day, 30, Refills 1; R efill metFORMIN HCl Tablet, 1000 MG, 1 tab(s), orally, 2 times a day, 90 days, 180 Tablet, Refills 1; R efill Jardiance Tablet, 10 MG, 1 tablet, Orally, Once a day, 30 day(s), 30 Tablet, Refills 5; S top Mounjaro Solution Auto-injector, 5 MG/0.5ML, INJECT THE CONTENTS OF 1 PEN (5 MG / 0.5ML) SUBCUTANEOUSLY ONCE A WEEK; S tart Mounjaro Solution Auto-injector, 7.5 MG/0.5ML, as directed, Subcutaneous, once a week, 4, Refills 0. L AB: P-Microalbumin/Creatinine, Random Urine Sample (Collection Date & Time - 08/12/2024 12:43 PM) Value Reference Range A lbumin/Creatinine Ratio, Urine <5.8 0-30 - ug /mg * C reatinine, Urine 51.2 - mg/dL * M icroalbumin, Urine, Random <0.3 - mg/dL * Yadi Lu 08/13/2024 8: 10:07 AM > discussed during OV Notes: Will increase mounjaro dose and decrease glimepiride dose.??3.?Essential hypertension? Refill Lisinopril-hydroCHLOROthiazide Tablet, 10-12.5 MG, 1 tab(s), orally, once a day, 90 days, 90, Refills 1;?Refill hydroCHLOROthiazide Tablet, 12.5 MG, 1 tab(s), orally, once a day, 90 days,90 Tablet, Refills 1.??4.?GERD without esophagitis? Refill Pantoprazole Sodium Tablet Delayed Release, 40 MG, 1 tab(s), orally, once a day, 90 days, 90Tablet, Refills 1.??5.?Hyperlipidemia, unspecified hyperlipidemia type? Refill Atorvastatin Calcium Tablet, 10 mg, TAKE ONE TABLET BY MOUTH EVERY DAY, 90, 90 Tablet, Refills 1;?Refill Fenofibrate Tablet, 145 mg, TAKE ONE TABLET BY MOUTH EVERY DAY, 90, 90 Tablet, Refills 1.?? * Procedure Codes: G 0439 ANNUAL WELLNESS VST; PPS SUBSQT VST, G2211 Complex e/m visit add on, G0444 ANNUAL DEPRESSION SCREENING 15 MIN, 1090F PRES/ABSN URINE INCON ASSESS, 3288F FALL RISK ASSESSMENT DOCD, 1170F FXNL STATUS ASSESSED, 1159F MED LIST DOCD IN RCRD, 1003F LEVEL OF ACTIVITY ASSESS, 3017F COLORECTAL CA SCREEN DOC REV, 1125F AMNT PAIN NOTED PAIN PRSNT, G8752 MOST RECENT SYSTOLIC BP < 140MM HG, G8754 MOST RECENT DIASTOLIC BP < 90MM HG * Preventive Medicine: Counseling: E motional health: P atient encouraged to try connecting with family or friends to boost mood. B ladder control: M ethods of controlling or managing leakage of urine discussed. E xercise: P atient advised to start, increase or maintain level of exercise/physical activity. I njury prevention: F all prevention discussed. Discussed need for cane/walker. Potential trip hazards discussed. Immunizations: I nfluenza u p to date. Screening / Special Tests: C olonoscopy Dr. Thapa, polyps, diverticulosis, hemorrhoids, repeat 5 years. D iabetic Retinal Eye Exam r ecommended today. * Follow Up: A s directed by * Images: Billing Information: * Visit Code: 10264 Office Visit, Est Pt., Level 3. Modifiers: 25 * Procedure Codes: G0439 ANNUAL WELLNESS VST; PPS SUBSQT VST. G2211 Complex e/m visit add on. G0444 ANNUAL DEPRESSION SCREENING 15 MIN. 1090F PRES/ABSN URINE INCON ASSESS. 3288F FALL RISK ASSESSMENT DOCD. 1170F FXNL STATUS ASSESSED. 1159F MED LIST DOCD IN RCRD. 1003F LEVEL OF ACTIVITY ASSESS. 3017F COLORECTAL CA SCREEN DOC REV. 1125F AMNT PAIN NOTED PAIN PRSNT. G8752 MOST RECENT SYSTOLIC BP < 140MM HG. G8754 MOST RECENT DIASTOLIC BP < 90MM HG. * Electronic signature of SHANELLE Gay on 02/08/2025 at 09:05 AM EDT Sign off status: Pending * Provider: SHANELLE Chiu Date: 0 08/12/2024 Generated for Pascual davis/Nolan/Michellesmitting on: 0 02/08/2025 09:05 AM EDT History and Physical Notes * HPI (History of Present Illness) Category Sub-Category Detail Notes Category Not es HPI Patient is here today for a sche duled 3 month check up and a Medicare Annual Wellness Visit. Pt states he had labs done at [facility]. Pt is not fasting Physical Examination Category Sub-Category Detail Notes Section Note s GENERAL Pain Assessment: Pain level: 8, on a scale of 0-10 (with 10 being extreme pain) Functional Status Assessment: Patient response to question of how often physical health interferes with daily activities: occasionally . Able to perform ADLs-including meal preparation, grocery shopping, housework, laundry, taking medications or handling finances. Cognitive Status: alert and oriented. Ambulation Status: Fully ambulatory Fall Risk Assessment: Independant in amb ulation, adequate lighting in home. Patient has fallen and had trouble walking within the past 12 months Depression Screening: Denies depressed m ood or anxiety. Describes emotional health as: downhearted/blue Bladder Control Screening: Small problem Examination Category Sub-Category Detail Notes Category Not es General Examination HEENT: unremarkable Heart: RSR Lungs: clear to auscultatio n Abdomen: bowel sounds present , soft and nontender Extremities: no leg edema General Appearance: NAD Skin: normal, no rash Neurologic Exam: Intact, gait normal Neck: supple, no lymphaden opathy Oral cavity: no lesions, mucosa m oist and WNL, no erythema Peripheral pulses: normal (2+) bilatera lly Chest: normal shape and exp ansion
--- OUTSIDE RECORDS SUMMARY | 2024-11-11 09:15 | XMS_ITS ---
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 Name Role Phone Suri Sanabria Primary Care Provider Yadi Lu Unavailable [phone] Allergies No Known Allergies Results Component Value Reference Range Notes CBC Venipuncture (in house) Reviewed date:11/13/2024 12:43:32 PM Interpretation:Normal Performing Lab: Notes/Report: Normal wbc 7.5 3.5 - 10 lymph 30.6% 15 - 50 mid 5.4% 2 - 15 gran 64.0% 35 - 80 rbc 5.34 3.5 - 5.5 hgb 15.6 11.5 - 16.5 hct 47.2 35 - 55 mcv 88.4 75 - 100 mch 29.3 25 - 35 mchc 33.1 31 - 38 platlet 193 100 - 400 Glycohemoglobin A1c (in hous e) Reviewed date:11/13/2024 12:43:32 PM Interpretation:6.0 Performing Lab: Notes/Report: 6.0 glycohemoglobin 6.0% 5 - 6.5 % P-Comprehensive Metabolic Pa izabel (CMP) Reviewed date:11/13/2024 12:43:32 PM Interpretation:BUN 21, Alk PHos 262 Performing Lab: Notes/Report: Test performed by [employer] [facility] , [address], [place] [address] Cr Gotti MD, Mobile Ui Designer CLIA: [id number] Sodium 139 135-145 mmol/L Potassium 4.1 3.5-5.3 mmol/L Chloride 100 97-108 mmol/L CO2 23 22-32 mmol/L Glucose 98 65-99 mg/dL BUN 21 6-20 mg/dL Creatinine 1.03 0.70-1.30 mg/dL Calcium 9.5 8.6-10.4 mg/dL eGFR by Creatinine 90 >59 mL/min/1.73m2 Protein 7.9 6.0-8.3 g/dL Albumin 5.1 3.5-5.3 g/dL Alkaline Phosphatase 262 40-129 IU/L ALT (SGPT) 32 <5-55 IU/L AST (SGOT) 24 <5-46 IU/L Bilirubin, Total 0.3 <0.2-1.2 mg/dL A/G Ratio 1.8 1.1-2.5 P-Lipid Panel Reviewed date:11/13/2024 12:43:32 PM Interpretation:HDL 23 Performing Lab: Notes/Report: Test performed by [employer], [address] , [address], [place] [address] Cr Gotti MD, Mobile Ui Designer CLIA: [id number] Cholesterol 99 <200 mg/dL Triglycerides 133 <150 mg/dL HDL Cholesterol 23 >39 mg/dL Cholesterol / HDL Ratio 4.30 0.00-4.99 Ratio Non-HDL Cholesterol 76 <130 mg/dL LDL Cholesterol (Calculation) 49 <130 mg/dL LDL Cholesterol Levels* Less than 100 mg/dL Optimal 100 to 129 mg/dL Near Optimal/ Above Optimal 130 to 159 mg/dL Borderline High 160 to 189 mg/dL High 190 mg/dL and above Very High * Categories as recommended by the 2004 ATPIII guidelines LDL/HDL Ratio 2.1 <3.3 Ratio LDL Cholesterol Patient History Test Date: 09/11/2023 LDL Results: 37 Units: mg/dL % Change: -9% Test Date: 12/11/2023 LDL Results: 25 Units: mg/dL % Change: -32% Test Date: 11/11/2024 LDL Results: 49 Units: mg/dL % Change: +96% P-TSH Reviewed date:11/13/2024 12:43:32 PM Interpretation:Normal Performing Lab: Notes/Report: Test performed by [employer] [address] [place] [address] , [address] , [place] [address] Cr Gotti MD, Mobile Ui Designer CLIA: [id number] TSH 2.67 0.43-5.25 mU/L REASON FOR VISIT 3 month checkup, Needs labs with PSA & colon cancer screening Medications Medication SIG (Take, Route, Frequency, Duration) Notes Start Date End Date Status Silver sulfADIAZINE 1 % APPLY TOPICALLY TO THE AFFECTED AREA(S) TWICE DAILY; Duration: 30 Active Pantoprazole Sodium 40 MG 1 tab(s) orall y once a day; Duration: 90 days Active Lisinopril-hydroCHLOROthiazi de 10-12.5 MG 1 tab(s) orally once a day; Duration: 90 days Active hydroCHLOROthiazide 12.5 MG 1 tab(s) ora lly once a day; Duration: 90 days Active Atorvastatin Calcium 10 mg TAKE ONE TABL ET BY MOUTH EVERY DAY; Duration: 90 Active EPINEPHrine 0.3 MG/0.3ML INJECT THE CONT ENTS OF 1 AUTO-INJECTOR INTRAMUSCULARLY ONCE NEEDED FOR ANAPHYLAXIS REACTION; Duration: 1 Active Mupirocin 2 % 1 application Home Health Attendant ally Twice a day 02/06/2024 Active Mounjaro 10 MG/0.5ML 10 mg Subcutaneous once a week 11/11/2024 Active Aspirin Adult Low Dose 81 MG 1 tab(s) or ally once a day Active Medrol 4 MG as directed Orally 11/11/2024 Active Tylenol Extra Strength 500 MG 1 tablet as needed Orally daily as needed Active Tylenol PM Extra Strength 500-25 MG 1 tablet at bedtime as needed Orally Once a day at bedtime Active CPAP machine and supplies - as directed as directed Active Benadryl Allergy 25 MG 1 tab(s) orally o nce daily prn Active metFORMIN HCl 1000 MG 1 tab(s) orally 2 times a day; Duration: 90 days Active Jardiance 10 MG 1 tablet Orally Once a day; Duration: 90 days 04/02/2024 Active Fenofibrate 145 mg TAKE ONE TABLET BY M OUTH EVERY DAY; Duration: 90 Active Problems Problem Type SNOMED Code ICD Code Onset Dates Problem Status W/U Status Risk Notes Problem Chronic obstructive pulmonary disease (disorder) (49583153) Other specified chronic obstructive pulmonary disease (J44.89) Active confirmed Problem Morbid obesity (disorder) (805692964) Morbid (severe) obesity due to excess calories (E66.01) Active confirmed Vital Signs Blood pressure systolic 120 mm Hg 11/12/19 25 Blood pressure diastolic 74 mm Hg 025 Heart Rate 93 /min 11/11/2024 Height 69 in 11/11/2024 Weight 258.8 lbs 11/11/2024 BMI 38.21 kg/m2 11/11/2024 Encounters Encounter Location Date Provider Diagnosis [facility] [address] [facility] [address] [place], [place] [address], [place] [id number] 11/11/2024 Yadi Lu Type 2 diabetes darren itus with diabetic polyneuropathy, without long-term current use of insulin E11.42 ; Essential hypertension I10 ; Peripheral vascular disease I73.9 ; Venous stasis dermatitis of both lower extremities I87.2 ; GERD without esophagitis K21.9 ; Hyperlipidemia, unspecified hyperlipidemia type E78.5 ; Lower extremity edema R60.0 ; Bee sting allergy Z91.030 ; Obstructive sleep apnea syndrome G47.33 ; Rash R21 ; Other specified chronic obstructive pulmonary disease J44.89 ; Morbid (severe) obesity due to excess calories E66.01 ; Mixed hyperlipidemia E78.2 and BMI 38.0-38.9,adult Z68.38 Assessments Encounter Date Diagnosis (ICD Code) Assessment Notes Treatment Notes Treatment Clinical Notes Section Notes 11/11/2024 Type 2 diabetes mellitus with diabetic polyneuropathy, without long-term current use of insulin (ICD-10 - E11.42) Will increase mounjaro dose and decrease glimepiride dose. 11/11/2024 Essential hypertension (ICD-10 - I10) 11/11/2024 Peripheral vascular disease (ICD-10 - I73.9) 11/11/2024 Venous stasis dermatitis of both lower extremities (ICD-10 - I87.2) 11/11/2024 GERD without esophagitis (ICD-10 - K21.9) 11/11/2024 Hyperlipidemia, unspecified hyperlipidemia type (ICD-10 - E78.5) 11/11/2024 Lower extremity edema (ICD-10 - R60.0) 11/11/2024 Bee sting allergy (ICD-10 - Z91.030) 11/11/2024 Obstructive sleep apnea syndrome (ICD-10 - G47.33) 11/11/2024 Rash (ICD-10 - R21) 11/11/2024 Other specified chronic obstructive pulmonary disease (ICD-10 - J44.89) 11/11/2024 Morbid (severe) obesity due to excess calories (ICD-10 - E66.01) 11/11/2024 Mixed hyperlipidemia (ICD-10 - E78.2) 11/11/2024 BMI 38.0-38.9,adult (ICD-10 - Z68.38) Plan Of Treatment Medication Medication Name Sig Start Date Stop Date Notes Pantoprazole Sodium 40 MG 1 tab(s) orall y once a day; Duration: 90 days Lisinopril-hydroCHLOROthiazi de 10-12.5 MG 1 tab(s) orally once a day; Duration: 90 days hydroCHLOROthiazide 12.5 MG 1 tab(s) ora lly once a day; Duration: 90 days Atorvastatin Calcium 10 mg TAKE ONE TABL ET BY MOUTH EVERY DAY; Duration: 90 Mounjaro 7.5 MG/0.5ML 7.5 mg Subcutaneou s once a week Mounjaro 10 MG/0.5ML 10 mg Subcutaneous once a week 11/11/2024 Medrol 4 MG as directed Orally 11/11/2024 metFORMIN HCl 1000 MG 1 tab(s) orally 2 times a day; Duration: 90 days Jardiance 10 MG 1 tablet Orally Once a day; Duration: 90 days 04/02/2024 Glimepiride 4 MG 1/2 tab orally once a day Fenofibrate 145 mg TAKE ONE TABLET BY M OUTH EVERY DAY; Duration: 90 Treatment Notes Assessment Notes Type 2 diabetes mellitus wit h diabetic polyneuropathy, without long-term current use of insulin Will increase mounjaro dose and decrease glimepiride dose. Next Appt Details Follow Up: via phone to repo rt test results, Reason: Provider Name:Yadi Toro y, 02/11/2025 10:00:00 AM, [address], [address] , [place], [place], [id number], Progress Notes * JACOB YUDOB: [birth year] (49 yo M)Acc No.[id number]:11/11/2024 Progress Notes Patient: JACOB RASMUSSEN Provider: SHANELLE Chiu :1975 A ge:49 Y S ex:Male Date:11/11/2024 Address:[address] [place] [address], [place], [id number] Pcp:Suri Sanabria Subjective: * Chief Complaints: * 1 . 3 month checkup. 2. Needs labs with PSA & colon cancer screening. * HPI: C ardiology: The patient is here for a check up on Hypertension and Diabetes. t states he is doing good and denies any new concerns. Pt is not fasting. Pt states he is needing refills sent to clinic pharmacy. Denies : Chest Pain. D enies : Short of Breath. D enies : Dizziness. D enies : Palpitations. * ROS: D ERMATOLOGY: no R reema. [...] application Externally Twice a day , Taking Silver sulfADIAZINE 1 % Cream APPLY TOPICALLY TO THE AFFECTED AREA(S) TWICE DAILY , Taking Pantoprazole Sodium 40 MG Tablet Delayed Release 1 tab(s) orally once a day , Taking Lisinopril-hydroCHLOROthiazide 10-12.5 MG Tablet 1 tab(s) orally once a day , Taking hydroCHLOROthiazide 12.5 MG Tablet 1 tab(s) orally once a day , Taking Atorvastatin Calcium 10 mg Tablet TAKE ONE TABLET BY MOUTH EVERY DAY , Taking Fenofibrate 145 mg Tablet TAKE ONE TABLET BY MOUTH EVERY DAY , Taking metFORMIN HCl 1000 MG Tablet 1 tab(s) orally 2 times a day , Taking Jardiance 10 MG Tablet 1 tablet Orally Once a day , Taking Glimepiride 4 MG Tablet 1/2 tab orally once a day , Taking Mounjaro 7.5 MG/0.5ML Solution Auto-injector 7.5 mg Subcutaneous once a week , Medication List reviewed and reconciled with the patient * Allergies: N .K.D.A. Objective: * Vitals: W t: 258.8, Temp: 98.1, BP: 120/74, HR: 93, Nurse: GRADY, Ht: 69, BMI:38.21. * Examination: G eneral Examination: General Appearance: [...] ntact, gait normal. S kin: n ormal, erythematous pruritic rash on the bilateral forearms. P eripheral pulses: n ormal (2+) bilaterally. E xtremities: n o leg edema. Assessment: * Assessment: 1. T ype 2 diabetes mellitus with diabetic polyneuropathy, without long-term current use of insulin - E11.42 (Primary) 2 . E ssential hypertension - I10 3 .?Peripheral vascular disease - I73.9 4 . V enous stasis dermatitis of both lower extremities - I87.2 5 . G ERD without esophagitis - K21.9 6 .?Hyperlipidemia, unspecified hyperlipidemia type - E78.5 7 . L ower extremity edema - R60.0 8 . B ee sting allergy - Z91.030 9 . O bstructive sleep apnea syndrome - G47.33 1 0. R reema - R21 1 1. O ther specified chronic obstructive pulmonary disease - J44.89 1 2. M orbid (severe) obesity due to excess calories - E66.01 1 3. M ixed hyperlipidemia - E78.2 14. B [place] 38.0-38.9,adult - Z68.38 Plan: * Treatment: Value Reference Range A /G Ratio 1.8 1.1-2.5 - * A lbumin 5.1 3.5-5.3 - g/dL * A lkaline Phosphatase 262 H 40-129 - IU/L * A LT (SGPT) 32 <5-55 - IU/L * A ST (SGOT) 24 <5-46 - IU/L * B ilirubin, Total 0.3 <0.2-1.2 - mg/dL * B UN 21 H 6-20 - mg/dL * C alcium 9.5 8.6-10.4 - mg/dL * C hloride 100 97-108 - mmol/L * C O2 23 22-32 - mmol/L * C reatinine 1.03 0.70-1.30 - mg/dL * G lucose 98 65-99 - mg/dL * P otassium 4.1 3.5-5.3 - mmol/L * S odium 139 135-145 - mmol/L * P rotein 7.9 6.0-8.3 - g/dL * e GFR by Creatinine 90 >59 - mL/min/1.73m2 * Natali Granados 11/13/2024 12: 43:24 PM EDT > See phone encounter ?LAB: Glycohemoglobin A1c (in house) (Collection Date & Time - 11/11/2024)? 6.0* Value Reference Range g lycohemoglobin 6.0% 5 - 6.5 % * Cora Veronica 11/11/2024 03 :07:46 PM EDT > Natali Granados 11/13/2024 12:43:24 PM EDT > See phone encounter Notes: Will increase mounjaro dose and decrease glimepiride dose.??2.?Essential hypertension? Refill Lisinopril-hydroCHLOROthiazide Tablet, 10-12.5 MG, 1 tab(s), orally, once a day, 90 days, 90, Refills 1;?Refill hydroCHLOROthiazide Tablet, 12.5 MG, 1 tab(s), orally, once a day, 90 days,90 Tablet, Refills 1.?LAB: P-TSH (Collection Date & Time - 11/11/2024 01:01 PM)?Normal* Value Reference Range T SH 2.67 0.43-5.25 - mU/L * Natali Granados 11/13/2024 12: 43:24 PM EDT > See phone encounter ?LAB: CBC Venipuncture (in house) (Collection Date & Time - 11/11/2024)? Normal* Value Reference Range w bc 7.5 3.5 - 10 * l ymph 30.6% 15 - 50 * m id 5.4% 2 - 15 * g ran 64.0% 35 - 80 * r bc 5.34 3.5 - 5.5 * h gb 15.6 11.5 - 16.5 * h ct 47.2 35 - 55 * m cv 88.4 75 - 100 * m ch 29.3 25 - 35 * m chc 33.1 31 - 38 * p latlet 193 100 - 400 * [employer] [employer] Ryan 11/11/2024 03 :09:57 PM EDT > Natali Granados 11/13/2024 12:43:24 PM EDT > See phone encounter 3.?GERD without esophagitis? Refill Pantoprazole Sodium Tablet Delayed Release, 40 MG, 1 tab(s), orally, once a day, 90 days, 90Tablet, Refills 1.??4.?Hyperlipidemia, unspecified hyperlipidemia type? Refill Atorvastatin Calcium Tablet, 10 mg, TAKE ONE TABLET BY MOUTH EVERY DAY, 90, 90 Tablet, Refills 1;?Refill Fenofibrate Tablet, 145 mg, TAKE ONE TABLET BY MOUTH EVERY DAY, 90, 90 Tablet, Refills 1.?LAB: P-Lipid Panel (Collection Date & Time - 11/11/2024 01:01 PM)?HDL 23* Value Reference Range C holesterol / HDL Ratio 4.30 0.00-4.99 - Ratio * C holesterol 99 <200 - mg/dL * H DL Cholesterol 23 L >39 - mg/dL * L DL Cholesterol (Calculation) 49 <130 - mg/d L * L DL/HDL Ratio 2.1 <3.3 - Ratio * N on-HDL Cholesterol 76 <130 - mg/dL * T riglycerides 133 <150 - mg/dL * Natali Granados 11/13/2024 12: 43:24 PM EDT > See phone encounter 5.?Rash? Start Medrol Tablet Therapy Pack, 4 MG, as directed, Orally, 1, Refills 0.?? * Procedure Codes: G 2211 Complex e/[place], [address] GLYCATED HEMOGLOBIN TEST, Modifiers: QW , [address] CBC WITH AUTO DIFF, 3044F HG A1C LEVEL LT 7.0%, G8950 PREHTN/HTN BP DOC INDCD F/U DOC, G8752 MOST RECENT SYSTOLIC BP < 140MM HG, G8754 MOST RECENT DIASTOLIC BP < 90MM HG, 1036F TOBACCO NON-USER, 3017F COLORECTAL CA SCREEN DOC REV * Preventive Medicine: Screening / Special Tests: C olonoscopy , polyps, diverticulosis, hemorrhoids, repeat 5 years. * Follow Up: v ia phone to report test results * Images: Billing Information: * Visit Code: 37721 Office Visit, Est Pt., Level 4. * Procedure Codes: G2211 Complex e/[place]. [address] GLYCATED HEMOGLOBIN TEST. Modifiers: QW 37390 CBC WITH AUTO DIFF. 3044F HG A1C LEVEL LT 7.0%. G8950 PREHTN/HTN BP DOC INDCD F/U DOC. G8752 MOST RECENT SYSTOLIC BP < 140MM HG. G8754 MOST RECENT DIASTOLIC BP < 90MM HG. 1036F TOBACCO NON-USER. 3017F COLORECTAL CA SCREEN DOC REV. * Electronic signature of SHANELLE Gay on 02/08/2025 at 09:05 AM EDT Sign off status: Pending * Provider: SHANELLE Chiu Date: 0 11/11/2024 Generated for Pascual davis/Nolan/eTransmitting on: 0 02/08/2025 09:05 AM EDT History and Physical Notes * HPI (History of Present Illness) Category Sub-Category Detail Notes Category Not es Cardiology Short of Breath Chest Pain Palpitations Dizziness Examination Category Sub-Category Detail Notes Category Not es General Examination HEENT: unremarkable Heart: RSR Lungs: clear to auscultatio n Abdomen: bowel sounds present , soft and nontender Extremities: no leg edema General Appearance: NAD Skin: normal, erythematous pruritic rash on the bilateral forearms Neurologic Exam: Intact, gait normal Neck: supple, no lymphaden opathy Oral cavity: no lesions, mucosa m oist and WNL, no erythema Peripheral pulses: normal (2+) bilatera lly Chest: normal shape and exp ansion
[2025-02-08] VITALS (10 sets, daily range): BP systolic 112–131; BP diastolic 58–87; PULSE 85–101; RESP 17–18; O2SAT 95–100; BMI 38.7
--- OUTSIDE RECORDS SUMMARY | 2025-02-08 09:06 | XMS_ITS | Patient Health Record ---
Author Organization [facility] Address [address] [place] [id number] Care Team Providers Care Cafeteria Helper Name Role Phone Suri Sanabria Primary Care Provider Yadi Lu Unavailable [phone] Allergies No Known Allergies Results Component Value Reference Range Notes P-Microalbumin/Creatinine, R andom Urine Sample Reviewed date:08/13/2024 08:10:19 AM Interpretation: Performing Lab: Notes/Report: Test performed by [facility] [address] [place] [address] , [address], [place] [address] Cr Gotti MD, Rasper Machine Operator CLIA: [id number] Albumin/Creatinine Ratio, Urine <5.8 0-30 ug/m g Microalbumin, Urine, Random <0.3 Creatinine, Urine 51.2 P-TSH Reviewed date:11/13/2024 12:43:32 PM Interpretation:Normal Performing Lab: Notes/Report: Test performed by [facility] [address] [place] [address] , [address], [place] [address] Cr Gotti MD, Rasper Machine Operator CLIA: [id number] TSH 2.67 0.43-5.25 mU/L P-Lipid Panel Reviewed date:11/13/2024 12:43:32 PM Interpretation:HDL 23 Performing Lab: Notes/Report: Test performed by [facility] [address] [place] [address] , [address], [place] [address] Cr Gotti MD, Rasper Machine Operator CLIA: [id number] Cholesterol 99 <200 mg/dL Triglycerides 133 <150 [...] Results: 49 Units: mg/dL % Change: +96% P-Comprehensive Metabolic Pa izabel (CMP) Reviewed date:11/13/2024 12:43:32 PM Interpretation:BUN 21, Alk PHos 262 Performing Lab: Notes/Report: Test performed by [facility], [address] , [address], [place] [address] Cr Gotti MD, Rasper Machine Operator CLIA: [id number] Sodium 139 135-145 mmol/L Potassium 4.1 3.5-5.3 [...] 0.3 <0.2-1.2 mg/dL A/G Ratio 1.8 1.1-2.5 Glycohemoglobin A1c (in hous e) Reviewed date:11/13/2024 12:43:32 PM Interpretation:6.0 Performing Lab: Notes/Report: 6.0 glycohemoglobin 6.0% 5 - 6.5 % CBC Venipuncture (in house) Reviewed date:11/13/2024 12:43:32 [...] - 38 platlet 193 100 - 400 H-CBC Reviewed date:08/13/2024 08:10:19 AM Interpretation: Performing Lab: Notes/Report: WBC 7.7 4.8-10.8 K/mm3 RBC 5.49 4.60-6.20 M/mm3 HGB 15.5 14.1-18.0 g/dL HCT 46.6 42.0-52.0 % MCV 84.9 80-94 fl MCH 28.2 27.0-31.2 pg MCHC 33.3 31.8-35.4 g/dL RDW 14.4 11.5-17.5 % PLT 200 142-424 K/mm3 MPV 10.1 7.4-10.4 fl NE% 66.5 37.0-80.0 % LY% 25.2 10-50 % MO% 5.1 1.7-9.3 % EO% 1.6 0.1-12.0 % BA% 0.8 0.1-2.0 % NE# 5.1 1.8-7.8 K/mm3 LY# 1.9 0.7-4.5 K/mm3 MO# 0.4 0.1-1.0 K/mm3 EO# 0.1 0.0-0.4 K/mm3 BA# 0.1 0-0.2 K/mm3 H-CBC Reviewed date:03/18/2024 02:49:35 PM Interpretation: Performing Lab: Notes/Report: WBC 6.5 4.8-10.8 K/mm3 RBC 5.08 4.60-6.20 M/mm3 HGB 14.9 14.1-18.0 g/dL HCT 43.7 42.0-52.0 % MCV 86.0 80-94 fl MCH 29.4 27.0-31.2 pg MCHC 34.2 31.8-35.4 g/dL RDW 14.9 11.5-17.5 % PLT 189 142-424 K/mm3 MPV 7.8 7.4-10.4 fl NE% 62.4 37.0-80.0 % LY% 28.5 10-50 % MO% 5.3 1.7-9.3 % EO% 2.6 0.1-12.0 % BA% 1.1 0.1-2.0 % NE# 4.1 1.8-7.8 K/mm3 LY# 1.9 0.7-4.5 K/mm3 MO# 0.4 0.1-1.0 K/mm3 EO# 0.2 0.0-0.4 K/mm3 BA# 0.1 0-0.2 K/mm3 H-Lipid Panel Reviewed date:03/18/2024 02:49:35 PM Interpretation: Performing Lab: Notes/Report: Patient Fasting? Y TRIG 243 30-150 mg/dl CHOL 105 140-200 mg/dl DLDL 33.02 100-129 mg/dL VLDL 49 0-40 mg/dL HDL 23 40-60 mg/dl CHLHDL 4.6 1-3.5 H-CMP Reviewed date:03/18/2024 02:49:35 PM Interpretation: Performing Lab: Notes/Report: NA 137 136-145 mmol/L K 4.3 3.5-5.1 mmoL/L CL 102 98-107 mmol/L CO2 25 22.0-30.0 mmol/L GAP 14.3 5-15 mEq/L BUN 20 9-20 mg/dl CREATT 0.90 0.66-1.25 mg/dl GFRAA 110 >60 ML/MIN EGFR 91 >60 ml/min GLU 195 74-100 mg/dl CA 9.9 8.4-10.2 mg/dl BILIT 0.5 0.2-1.3 mg/dl AST 36 17-59 U/L ALT 37 12-78 U/L TP 8.5 6.3-8.2 g/dl ALB 5.0 3.5-5.0 g/dl GLOB 3.5 1.3-3.2 g/dL AGRATIO 1.4 1.1-1.8 ALP 267 38-126 U/L H-Glycohemoglobin A1C Reviewed date:03/18/2024 02:49:35 PM Interpretation: Performing Lab: Notes/Report: HGBA1C 8.9 4.0-6.0 % < 6% Non-Diabetic Level < 7% Controlled Diabetic Level > 8% Poorly Controlled Diabetic Level Reason For Referral Diagnosis 1 Wound of left lower extremity, initial encounter (S81.802A) Diagnosis 2 Wound of right lower extremity, initial encounter (S81.801A) Diagnosis 3 Lower extremity goran a (R60.0) Referral Organization [facility] Referring Provider First Name Yadi Referring Provider Last Name Tabitha Referring Provider Speciality Physician Rough Patcher Referred Provider Physical Therapy, . Referred Provider Specialty Physical The rapist General Notes Yadi Lu 03/03 11:36:26 AM > Needs appt with wound care, AzulRosemary 03/18/2024 11:39:12 AM > faxed referral to [facility] PT Referral Priority Routine Medications Medication SIG (Take, Route, Frequency, Duration) Notes Start Date End Date Status Mounjaro 10 MG/0.5ML 10 mg Subcutaneous once a week 11/11/2024 Active Pantoprazole Sodium 40 MG 1 tab(s) orall y once a day; Duration: 90 days Active Lisinopril-hydroCHLOROthiazi de 10-12.5 MG 1 tab(s) orally once a day; Duration: 90 days Active hydroCHLOROthiazide 12.5 MG 1 tab(s) ora lly once a day; Duration: 90 days Active Atorvastatin Calcium 10 mg TAKE ONE TABL ET BY MOUTH EVERY DAY; Duration: 90 Active Benadryl Allergy 25 MG 1 tab(s) orally o nce daily prn Active Fenofibrate 145 mg TAKE ONE TABLET BY M OUTH EVERY DAY; Duration: 90 Active Aspirin Adult Low Dose 81 MG 1 tab(s) or ally once a day Active metFORMIN HCl 1000 MG 1 tab(s) orally 2 times a day; Duration: 90 days Active EPINEPHrine 0.3 MG/0.3ML INJECT THE CONT ENTS OF 1 AUTO-INJECTOR INTRAMUSCULARLY ONCE NEEDED FOR ANAPHYLAXIS REACTION; Duration: 1 Active Jardiance 10 MG 1 tablet Orally Once a day; Duration: 90 days 04/02/2024 Active Silver sulfADIAZINE 1 % APPLY TOPICALLY TO THE AFFECTED AREA(S) TWICE DAILY; Duration: 30 Active Medrol 4 MG as directed Orally 11/11/2024 Active Tylenol Extra Strength 500 MG 1 tablet as needed Orally daily as needed Active Mupirocin 2 % APPLY TOPICALLY TO T HE AFFECTED AREA(S) TWICE DAILY; Duration: 10 Active Tylenol PM Extra Strength 500-25 MG 1 tablet at bedtime as needed Orally Once a day at bedtime Active CPAP machine and supplies - as directed as directed Active Immunizations Vaccine Route Administration Date Status Comme nts COVID 19 Moderna IM Intramuscular 09/27/2020 Administered COVID 19 Moderna Unknown 10/25/2020 Administered COVID 19 Moderna Unknown 05/11/2021 Administered Fluzone PF Quad (6-35 months) Unknown 03/07/2022 Administered Fluzone Quad (6months&older) Unknown 03/11/2014 Administered Fluzone Quad (6months&older) IM Intramuscular 04/11/2020 Administered xFlu shot- 6months-36 months of eyi-RFRQ-PUJK-trivalent Unknown 03/14/2012 Administered xFluzone (6mos and older)-trivalent Unknown 03/10/2009 Administered Problems Problem Type SNOMED Code ICD Code Onset Dates Problem Status W/U Status Risk Notes Problem Hyperlipidemia (65181910) Hyperlipidemia (E78.5) Active confirmed Problem Essential hypertension (92961285) Essential hypertension (I10) Active confirmed Problem Obesity (166690966) Obesity (E66.9) Active conf irmed Problem Lymphedema (95697524) Lymphedema (I89.0) Active confirmed Problem Morbid obesity (disorder) (235853518) Morbid (severe) obesity due to excess calories (E66.01) Active confirmed Problem Mixed hyperlipidemia (390115460) Mixed hyperlipidemia (E78.2) Active confirmed Problem Urinary incontinence (850899930) Unspecified urinary incontinence (R32) Active confirmed Problem Peripheral vascular disease (120198876) Peripheral vascular disease (I73.9) Active confirmed Problem Gastroesophageal reflux disease (243535296) GERD without esophagitis (K21.9) Active confirmed Problem Obstructive sleep apnea syndrome (92802389) Obstructive sleep apnea syndrome (G47.33) Active confirmed Problem Gastroesophageal reflux disease (071727853) Gastroesophageal reflux disease, esophagitis presence not specified (K21.9) Active confirmed Problem Obese class II (739906061847002) BMI 38.0-38.9,adult (Z68.38) Active confirmed Problem Body mass index 40+ - morbidly obese (905810144) BMI 40.0-44.9, adult (Z68.41) Active confirmed Problem Hyperlipidaemia (18093877) Hyperlipidemia, unspecified hyperlipidemia type (E78.5) Active confirmed Problem Carpal tunnel syndrome of left wrist (556020602370321) Carpal tunnel syndrome of left wrist (G56.02) Active confirmed Problem Hypersomnia (06171946) Hypersomnia (G47.10) Active confirmed Problem Polyneuropathy due to type 2 diabetes mellitus (189767890) Type 2 diabetes mellitus with diabetic polyneuropathy, without long-term current use of insulin (E11.42) Active confirmed Problem Peripheral venous insufficiency (73316056) Venous stasis dermatitis of both lower extremities (I87.2) Active confirmed Problem Allergic reaction to bee sting (911301751) Bee sting allergy (Z91.030) Active confirmed Problem Night-waking disorder (G47.20) Active confirmed Problem Gastroesophageal reflux disease (374925207) Gastroesophageal reflux disease, unspecified whether esophagitis present (K21.9) Active confirmed Problem Chronic obstructive pulmonary disease (disorder) (83946532) Other specified chronic obstructive pulmonary disease (J44.89) Active confirmed Vital Signs Heart Rate 93 /min 11/11/2024 Blood pressure diastolic 74 mm Hg 11/11/2024 Height 69 in 11/11/2024 Blood pressure systolic 120 mm Hg 11/11/2024 Weight 258.8 lbs 11/11/2024 BMI 38.21 kg/m2 11/11/2024 Encounters Encounter Location Date Provider [facility] [address] [id number] 03/18/2024 Yadi Lu Wound of left lower extremity, initial encounter S81.802A ; Type 2 diabetes mellitus with diabetic polyneuropathy, without long-term current use of insulin E11.42 ; Wound of right lower extremity, initial encounter S81.801A and Lower extremity edema R60.0 [facility] [address] [place] [id number] 08/12/2024 Yadi Lu Adult general medica l [...] Mixed hyperlipidemia E78.2 and BMI 38.0-38.9,adult Z68.38 [facility] [address] [facility] [address] [place], [place] [id number] 11/11/2024 Yadi Lu Type 2 diabetes darren [...] Mixed hyperlipidemia E78.2 and BMI 38.0-38.9,adult Z68.38 [facility] [address] [facility] [address] [place], [place] [id number] 03/17/2024 Yadi Lu Essential hypertensi on I10 ; Type 2 diabetes mellitus with diabetic polyneuropathy, without long-term current use of insulin E11.42 and Mixed hyperlipidemia E78.2 [facility] [address] [facility] [address] [place], [place] [id number] 03/30/2024 Suri Sanabria [facility] [address] [facility] [address] [place], [place] [id number] 03/30/2024 Yadi Lu Skin infection L08.9 [facility] [address] [facility] [address] [place] [id number] 04/27/2024 Yadi Lu [facility] [address] [facility] [address] [place] [id number] 06/17/2024 Suri Sanabria [facility] [address] [facility] [address] [place] [id number] 08/24/2024 Suri Sanabria [facility] [address] [facility] [address] [place] [id number] 09/17/2024 Suri Sanabria [facility] [address] [facility] [address] [place], [place] [id number] 09/21/2024 Yadi Lu Type 2 diabetes darren itus with diabetic polyneuropathy, without long-term current use of insulin E11.42 [facility] [address] [place] [id number] 09/23/2024 Yadi Lu [facility] [address] [place] [id number] 11/13/2024 Yadi Lu Assessments Encounter Date Diagnosis (ICD Code) Assessment Notes Treatment Notes Treatment Clinical Notes Section Notes 03/17/2024 Essential hypertension (ICD-10 - I10) 03/17/2024 Type 2 diabetes mellitus with diabetic polyneuropathy, without long-term current use of insulin (ICD-10 - E11.42) 03/30/2024 Skin infection (ICD-10 - L08.9) 03/18/2024 Type 2 diabetes mellitus with diabetic polyneuropathy, without long-term current use of insulin (ICD-10 - E11.42) 03/18/2024 Wound of left lower extremity, initial encounter (ICD-10 - S81.802A) 08/12/2024 Adult general medical examination (ICD-10 - [...] 11/11/2024 Essential hypertension (ICD-10 - I10) 11/11/2024 Type 2 diabetes mellitus with diabetic polyneuropathy, without long-term current use of insulin (ICD-10 - E11.42) Will increase mounjaro dose and decrease glimepiride dose. 09/21/2024 Type 2 diabetes mellitus with diabetic polyneuropathy, without long-term current use of insulin (ICD-10 - E11.42) 11/11/2024 Peripheral vascular disease (ICD-10 - I73.9) 03/18/2024 Wound of right lower extremity, initial encounter (ICD-10 - S81.801A) 08/12/2024 Essential hypertension (ICD-10 - I10) 03/17/2024 Mixed hyperlipidemia (ICD-10 - E78.2) 03/18/2024 Lower extremity edema (ICD-10 - R60.0) 08/12/2024 Peripheral vascular disease (ICD-10 - I73.9) 11/11/2024 Venous stasis dermatitis of both lower extremities (ICD-10 - I87.2) 11/11/2024 GERD without esophagitis (ICD-10 - K21.9) 08/12/2024 Venous stasis dermatitis of both lower extremities (ICD-10 - I87.2) 08/12/2024 GERD without esophagitis (ICD-10 - K21.9) 11/11/2024 Hyperlipidemia, unspecified hyperlipidemia type (ICD-10 - E78.5) 11/11/2024 Lower extremity edema (ICD-10 - R60.0) 08/12/2024 Hyperlipidemia, unspecified hyperlipidemia type (ICD-10 - E78.5) 08/12/2024 Lower extremity edema (ICD-10 - R60.0) 11/11/2024 Bee sting allergy (ICD-10 - Z91.030) 11/11/2024 Obstructive sleep apnea syndrome (ICD-10 - G47.33) 08/12/2024 Bee sting allergy (ICD-10 - Z91.030) 08/12/2024 Obstructive sleep apnea syndrome (ICD-10 - G47.33) 11/11/2024 Rash (ICD-10 - R21) 11/11/2024 Other specified chronic obstructive pulmonary disease (ICD-10 - J44.89) 08/12/2024 Mixed hyperlipidemia (ICD-10 - E78.2) 08/12/2024 BMI 38.0-38.9,adult (ICD-10 - Z68.38) 11/11/2024 Morbid (severe) obesity due to excess calories (ICD-10 - E66.01) 11/11/2024 Mixed hyperlipidemia (ICD-10 - E78.2) 11/11/2024 BMI 38.0-38.9,adult (ICD-10 - Z68.38) Plan Of Treatment Pending Test Test Name Order Date LC-bnp 09/06/2021 P-BNP (Brain Natriuretic Peptide) 2023 Next Appt Details Provider Name:Yadi craft, 02/11/2025 10:00:00 AM, [address], [place], [place], [id number], Insurance Providers Payer Name Payer Address Payer Phone Subscriber Number Group Number Insured Name Patient Relationship to Insured Coverage Start Date Coverage End Date MEDICARE PART B [address] [address] [place] [id number] GIGI JACOB Self - patient is the insured MEDICA[employer] [address] [place] [id number] GIGIJACOB COX Self - patient is the insured Medical (General) History Medical History History ICD Code Hypertension Type 2 Diabetes Mellitus Sleep Apnea; wears CPAP PVD Venous Stasis Dermatitis GERD Hyperlipidemia Surgical History Surgery Date(Month/Year) Abcess Tooth 1998 Cholecystectomy 01/2015
[2025-02-08 09:11] LABS: Chloride 100 mmol/L (98-107); Potassium 4.4 mmoL/L (3.5-5.1); Sodium 138 mmol/L (136-145)
[2025-02-08 09:14] LABS: Anion Gap 14.4 mEq/L (5-15); Blood Urea Nitrogen 21 mg/dl (9-20); Calcium 9.8 mg/dl (8.4-10.2); Carbon Dioxide 28 mmol/L (22.0-30.0); Creatinine,Serum 1.00 mg/dl (0.66-1.25); Estimated Glomerular Filt Rate 80 ml/min (>60); GFR (African American) 97 ML/MIN (>60); Glucose 85 mg/dl (74-100)
--- NOTE | 2025-02-08 10:00 | CT_ITS ---
APPROVED REPORT Drum Sprayer: CLINICAL INDICATION Chest Pain TECHNIQUE Image Acquisition: A 128 slice MDCT scanner ([employer] Redeemra View) was used for data acquisition. A noncontrast coronary calcium scan was performed. A CT attenuation threshold of 130 Hounsfield units (HU) was used for the detection of calcium in contiguous voxels of 1 sq mm in area to be counted as individual lesions. Bolus tracking in the ascending aorta with a threshold of 180 HU was performed. Immediately afterwards, ECG synchronized cardiac CT was then performed from the cardiac base to apex using retrospective gating with ECG tube current modulation. A total of 85 mL of Isovue 370 mg/mL contrast medium was administered at 5 mL/sec followed by a saline flush using a biphasic injection protocol. A tube voltage of 120 KVp was used. Image Reconstruction Transaxial images were reconstructed at 0.67 mm slide thickness. Data was reviewed interactively on an advanced workstation capable of 2 and 3-dimensional displays in all conventional reconstruction formats, including multiplanar reformations, maximum intensity projections, curved multiplanar reformations, and volume rendered reconstructions. When applicable, selected routine images describing the relevant coronary anatomy and pathology were saved and sent to PACS. Complications None Technical Quality Overall image quality was technically difficult due to significant motion and blurring. Coronary artery opacification was fair. Total DLP (Dose-Length Product) is 1737.8 mGy-cm. The reported value represents the total of one or more individual components during the CT acquisition of this date and at this time, and as such, the same value may appear in more than one CT report depending on the interpreting/reporting physicians. COMPARISON None FINDINGS CT Coronary Calcium Scoring LMA (Left Main Artery) = 0 LAD (Left Anterior Descending) = 0 LCX (Left Coronary Circumflex) = 0 RCA (Right Coronary Artery) = 0 Total Calcium Score = 0 using the AJ-130 method. The interpretation of the calcium heart score is based on the following continuum*: 0 = no calcified plaque detected (risk of coronary artery disease is very low ??? less than 5%) 1-10 = calcium detected in extremely minimal levels (risk of coronary diseases is still low ??? less than 10%) 11-100 = mild levels of plaque detected with certainty (mild or minimal narrowing of heart arteries is likely) 101-400 = definite,at least moderate levels of plaque detected (relatively high risk of a heart attack within 3-5 years) >401-999 = extensive levels of plaque detected (high risk of heart attack, high levels of vascular disease are present, high likelihood of at least one significant coronary narrowing) *The calcium heart score quantifies the burden of coronary calcification/plaque in the coronary arteries. The calcium heart score is not able to evaluate the presence or burden of non-calcified (i.e. soft) plaque. There is no identifiable calcification in the aortic valve, mitral annulus or mitral valve, pericardium, or myocardium. Coronary CT Angiography The coronary arterial system is right dominant. Quantitative Stenosis Grading: Left Main (LM): The left main originates normally from the left sinus of Valsalva. The LM bifurcates into the left anterior descending artery and left circumflex artery. The LM is patent with no evidence of atherosclerosis. Left Anterior Descending (LAD) and Diagonal Branches: The LAD gives off 2 diagonal branch(es). The LAD and its branches are patent with no evidence of atherosclerosis. There is no evidence of LAD-myocardial bridge. Left Circumflex (LCX) and Obtuse Marginals (OM): The LCX gives off 1 Obtuse Marginal (OM) branch(es). The LCX and its branches are patent with no evidence of atherosclerosis. Right Coronary Artery (RCA): The RCA originates normally from the right sinus of Valsalva. The RCA gives off a posterior descending artery (PDA) and posterolateral (PL) branches. The RCA and its branches are patent with no evidence of atherosclerosis. Non-Coronary Cardiac Findings: Analysis of the left ventricular (LV) structure and function was performed after 3-D reconstruction of the LV from axial images, with user-corrected automatic contouring for assessment of LV volumes and user-defined reconstruction from oblique planes for measurement of 3-D cardiac structure and function. -The left ventricle systolic function is normal. -There is no left atrial appendage filling defect. Two right pulmonary veins and two left pulmonary veins drain normally into the left atrium. -No pericardial thickening or calcification. -Central and branch pulmonary arteries in the [id number] are unremarkable. -Thoracic aorta within the visualized thoracic aortic-branches in the itbhu-zn-spnd is unremarkable. Extracardiac Structures -Hiatal hernia is incidentally noted. IMPRESSION -Study was technically difficult due to significant motion and blurring. This may affect the diagnostic interpretation of the study findings. -Absence of coronary calcification with an Agatston score = 0 using the AJ-130 method. -No evidence of obvious significant flow-limiting atherosclerosis of the coronary arteries. -CAD-RADS 0. Management recommendations per ACC/AHA guidelines*, as clinically appropriate. -Hiatal hernia is incidentally noted. *Recommendations: CAD RADS 0: Reassurance. Consider non-atherosclerotic causes of chest pain. CAD RADS 1: Consider non-atherosclerotic causes of chest pain. Consider preventive therapy and risk factor modification. CAD RADS 2: Consider non-atherosclerotic causes of chest pain. Consider preventive therapy and risk factor modification, particularly for patients with nonobstructive plaque in multiple segments. CAD RADS 3: Consider further functional testing. Consider symptom-guided anti-ischemic and preventive pharmacotherapy as well as risk factor modification per published guideline statements. CAD RADS 4A: Consider further functional testing or invasive coronary angiography with revascularization per published guideline statements. Consider symptom-guided anti-ischemic and preventive pharmacotherapy as well as risk factor modification per published guideline statements. CAD RADS 4B: Invasive coronary angiography recommended with revascularization per published guideline statements. Consider symptom-guided anti-ischemic and preventive pharmacotherapy as well as risk factor modification per published guideline statements. CAD RADS 5: Consider invasive angiography and/or viability assessment with revascularization per published guideline statements. Consider symptom-guided anti-ischemic and preventive pharmacotherapy as well as risk factor modification per published guideline statements. CRITICAL RESULT None COMMUNICATION Per this written report The coronary and cardiac findings of this CCTA were reviewed, reported, and signed by Hi Sagastume MD (Obstetrics Nurse) Conclusion Electronically signed by : Josette Sagastume MD 02/08/2025 21:28:17
[2025-02-08] MEDS: 0.9 % SODIUM CHLORIDE 1000ML 1,000 ML 999 ML IV (10:52)
--- NOTE | 2025-02-08 11:00 | CA_ITS ---
APPROVED REPORT EXAM: Comprehensive 2D, Doppler, and color-flow Echocardiogram Waterproofing Mixer: Tiffani Villanueva RVT Ht: 6 ft 0 in Wt: 259lbs BSA: 2.38 BP: 134/84 mmHg Indications: chest pain 2D Dimensions LA Volume 35.80 mL LA Volume Index 15.04 mL/m2 (M/F) 16-34 M-Mode Dimensions RVDd 2.36 cm (0.9-2.6) LA Diam 2.83 cm (1.9-4.0) LVDd 4.85 cm (3.5-5.7) LVDs 3.23 cm (3.5-5.7) IVSd 1.28 cm (0.6-1.1) PWd 0.61 cm (0.6-1.1) EF (Teich) 62.00% FS 33.40% EDV (Teich) 110.20 mL TAPSE 2.29 (<1.7) ESV (Teich) 41.90 mL LV Diastology E Decel Time 183 (160-240 msec) E/A Ratio 0.9 Aortic Valve JANINE Index 1.11 cm2/m2 AoV Peak Malik. 105.0 (50-130 cm/s) AO Peak GR. 4.40 mmHg AO Mean GR. 2.70 (<5 mmHg) AO VTI 19.4 (18-25 cm) JANINE (VTI) 2.70 (2.5-4.5 cm2) Mitral Valve MV E Max Malik. 65.0 (40-130 cm/s) MV A Velocity 69.0 (40-130 cm/s) E/A Ratio 0.93 MV PHT 54.0 ms Pulmonary Valve PV Peak Velocity 66.0 (50-150 cm/s) Tricuspid Valve TR P. Velocity 214.00 cm/s RAP Estimate 8.00 mmHg RVSP 26.40 mmHg Left Ventricle The left ventricle is normal size. Left ventricular systolic function is normal. The left ventricular ejection fraction is within the normal range. There is normal left ventricular wall thickness. There is normal LV segmental wall motion. The left ventricular diastolic function is normal. LVEF is 55% Right Ventricle The right ventricle is mildly to moderately dilated. The right ventricular systolic function is normal. Atria The left atrium size is normal. The right atrium is mildly dilated. There is no color Doppler evidence of interatrial shunt. Aortic Valve The aortic valve opens well. There is no hemodynamically significant aortic valvular stenosis. No aortic regurgitation is present. Mitral Valve The mitral valve is normal in structure. No evidence of mitral valve stenosis. Trace mitral regurgitation is present. Tricuspid Valve The tricuspid valve leaflets are thin and pliable. Mild tricuspid regurgitation. RVSP is 20-25 mmHg. Pulmonic Valve The pulmonary valve is grossly normal in structure. Trace pulmonic valve regurgitation is present. Great Vessels The aortic root is normal in size. IVC is normal in size and collapses >50% with inspiration. Pericardium There is no pericardial effusion. Other Information Study Quality: Technically Difficult Conclusion Technically difficult study. Normal LV systolic function. Mild to moderate RV dilation with normal RV function. Mild TR. Electronically signed by : Josette Sagastume MD 02/09/2025 12:49:31
[2025-02-08 11:05] LABS: POC Glucose,Bedside 100 gm/dL (70-110)
[2025-02-08] MEDS: METOPROLOL TARTRATE 50MG TABLET PO ×2 (11:48→12:43)
[2025-02-08] MEDS: IVABRADINE HCL 7.5MG TABLET PO (11:49)
--- NOTE | 2025-02-08 11:53 | PC.NURSE ---
spoke to TAMIE Benitez regarding pt's BP after 500mL of 2nd fluid bolus (121/63, HR 101). RIG OPERATOR was agreeable to proceed with CCTA protocol and to give PO meds per protocol. 75mg Lopressor PO and 15mg Corlanor PO given at this time.
[2025-02-08] MEDS: METOPROLOL TARTRATE 5MG/5ML VIAL 5 MG IV ×3 (13:40→13:55)
[2025-02-08] MEDS: NITROGLYCERIN 0.4MG SL TABLET SL (14:28)
[2025-02-08] MEDS: 0.9 % SODIUM CHLORIDE 50 ML VIAL IV (15:13)
[2025-02-08] MEDS: SODIUM CHLORIDE 0.9% 10ML SYR (RAD ONLY) 10 ML IV (15:14)
[2025-02-08] MEDS: IOPAMIDOL-370 (76%);100ML BOTTLE 85 ML IV (15:14)
== END 2025-02-08 14:25 | disposition home or self-care (01) ==
PROVIDERS: PCP Family Medicine; Visit Provider Nurse Practitioner
DX: I07.1 Rheumatic tricuspid insufficiency (principal); I11.9 Hypertensive heart disease without heart failure; K44.9 Diaphragmatic hernia without obstruction or gangrene; E78.5 Hyperlipidemia, unspecified
CPT/HCPCS: 36415; 75574; 80048; 82962; 93306; J7030; Q9967

== ENCOUNTER 2025-04-05 11:37 | Day surgery (SDC) | payer MEDICARE, MEDICAID, SELFPAY ==
[2025-04-05 11:56] VITALS: PULSE 107; RESP 18; TEMP 36.3; O2SAT 99; BMI 38.7
[2025-04-05] MEDS: LACTATED RINGERS 1000ML 1,000 ML 50 ML IV (12:11)
--- NOTE | 2025-04-05 12:35 | EXP.ANES.CKL ---
[facility] Disclaimer: The information contained in this section may have been updated after the patient was seen, as this information can be updated by other users. Medical History SOB (shortness of breath) Chest pain Allergic rhinitis Asthma Dyspnea on exertion HLD (hyperlipidemia) HTN (hypertension) Right foot drop MARSHA (obstructive sleep apnea) Palpitations Diabetes Abnormal findings on diagnostic imaging of heart and coronary circulation Bilateral impacted cerumen Impacted cerumen of right ear Surgical History History of colonoscopy History of cholecystectomy Family History Other Coronary artery disease Diabetes Social History Smoking Status: Former smoker alcohol intake: former substance use type: former substance user and marijuana current occupational status: disabled Travel in the last 8 weeks?: None household members: none housing: house current occupational exposures/hazards: No caffeine: Yes Have you lived/traveled outside [place] in past 30 days?: No Contact w/someone who lives/traveled outside US past 30 days?: No Exposure to someone with infectious disease in past 14 days?: No Do you have a fever (greater than 100.4 F or 38 C)?: No Have you tested positive for COVID-19?: No Exposed to someone with COVID-19 in past 14 days?: No Do you have a sore throat?: No Do you have a cough?: No Do you have any weakness?: No Are you experiencing any nausea/vomitting?: No Do you have any diarrhea?: No Are you experiencing any unusual bleeding?: No Do you have any muscle aches/pain?: No Do you have any abdominal pain?: No Are you experiencing loss of taste or smell?: No [facility] Anesthesia Checklist Patient Identification Patient Identification: Verbal (Name & ) Structural Data Admitted From: Home Planned Operative Procedure/s: colonoscopy NPO Status Verified Time NPO: 00:00 Additional verifications Anesthesia Reactions: No Hx Blood Transfusions: No Blood Transfusion Reaction: No Airway Assessment Mallampati Score:: Class II C-Spine Mobility Assessed: Yes TMJ Mobility Assessed: Yes Dentition: Poor Dentition Neurological Assessment Level of Consciousness: Awake, Alert and Appropriate Anesthesia Plan Anesthesia Risk discussed: Yes Anesthesia Plan: Verified ASA Class: III Anesthesia Type: MAC
--- NOTE | 2025-04-05 12:39 | EXP.HP ---
History of Present Illness *Admission Date: 04/05/25 *History of present illness: Mr. House is a 49-year-old gentleman who is here for screening/surveillance colonoscopy. The patient did have a colonoscopy with me in February 2020 and had 6 polyps (hyperplastic polyps x 6) removed. The examination is deemed medically necessary for screening/surveillance colonoscopy. The patient has been seen, interviewed and examined prior to the procedure by both myself and the anesthesia provider. [facility] Disclaimer: The information contained in this section may have been updated after the patient was seen, as this information can be updated by other users. Medical History SOB (shortness of breath) Chest pain Allergic rhinitis Asthma Dyspnea on exertion HLD (hyperlipidemia) HTN (hypertension) Right foot drop MARSHA (obstructive sleep apnea) Palpitations Diabetes Abnormal findings on diagnostic imaging of heart and coronary circulation Bilateral impacted cerumen Impacted cerumen of right ear Surgical History History of colonoscopy History of cholecystectomy Family History Other Coronary artery disease Diabetes Social History Smoking Status: Former smoker alcohol intake: former substance use type: former substance user and marijuana current occupational status: disabled Travel in the last 8 weeks?: None household members: none housing: house current occupational exposures/hazards: No caffeine: Yes Have you lived/traveled outside [place] in past 30 days?: No Contact w/someone who lives/traveled outside [place] past 30 days?: No Exposure to someone with infectious disease in past 14 days?: No Do you have a fever (greater than 100.4 F or 38 C)?: No Have you tested positive for COVID-19?: No Exposed to someone with COVID-19 in past 14 days?: No Do you have a sore throat?: No Do you have a cough?: No Do you have any weakness?: No Are you experiencing any nausea/vomitting?: No Do you have any diarrhea?: No Are you experiencing any unusual bleeding?: No Do you have any muscle aches/pain?: No Do you have any abdominal pain?: No Are you experiencing loss of taste or smell?: No Other Medical History Have you received the Flu Vaccine for this season: No Have you received the Pneumonia Vaccine: No Review of Systems Review of Systems Review of systems (narrative): Negative *Cardiovascular Comments: Negative *Gastrointestinal Comments: Negative *Genitourinary Comments: Negative *Musculoskeletal Comments: Negative *Neurologic Comments: Negative Meds Home Medications and Allergies Home Medications ?Medication ?Instructions ?Recorded ?Confirmed ?Type aspirin 81 mg tablet,delayed 81 mg PO ONCE heart health 09/26/17 03/16/25 History release (Adult Low Dose Aspirin) diphenhydramine HCl 25 mg capsule 25 mg PO ONCE PRN Allergic Reaction 09/26/17 03/16/25 History (Benadryl) epinephrine 0.3 mg/0.3 mL 0.3 mg IM ONCE allergies 09/26/17 03/16/25 History injection, auto-injector (EpiPen 2-Kenny) fenofibrate nanocrystallized 145 145 mg PO ONCE High blood pressure 09/26/17 03/16/25 History mg tablet (Tricor) pantoprazole 40 mg tablet,delayed 40 mg PO ONCE GERD 09/26/17 03/16/25 History release metformin 1,000 mg tablet 1,000 mg PO BID Diabetes 06/01/19 03/16/25 History atorvastatin 10 mg tablet 10 mg PO DAILY Cholesterol 09/30/19 03/16/25 History canagliflozin 300 mg tablet 300 mg PO DAILY 06/07/21 03/16/25 History (Invokana) fluticasone propionate 50 1 spray intranasal DAILY 06/07/21 03/16/25 History mcg/actuation nasal spray,suspension (24 Hour Allergy Relief) silver sulfadiazine 1 % topical 1 applic topical BID 12/13/21 03/16/25 History cream (SSD) gentamicin 0.1 % topical ointment 1 applic topical TID #15 grams 03/07/22 03/16/25 Rx hydrochlorothiazide 12.5 mg capsule 12.5 mg PO DAILY 04/25/22 03/16/25 History dextrin 3 gram/4 gram oral powder 3 g PO DAILY 06/06/23 03/16/25 History (Clear Fiber) polyethylene glycol 3350 17 17 g PO DAILY 06/06/23 03/16/25 History gram/dose oral powder (Miralax) lisinopril 10 1 tab PO DAILY High blood pressure 11/20/23 03/16/25 Rx mg-hydrochlorothiazide 12.5 mg #90 tabs tablet empagliflozin 10 mg tablet 10 mg PO DAILY 10/06/24 03/16/25 History (Jardiance) diclofenac sodium 1 % topical gel 4 g topical QID PRN pain #100 11/03/24 03/16/25 Rx grams acetaminophen 500 mg tablet 500 mg PO Q6H PRN Mild Pain (Scale 02/08/25 03/16/25 History Score 1-4) budesonide-formoterol HFA 160 See Rx Instructions .Route .COMPLEX 02/08/25 03/16/25 History mcg-4.5 mcg/actuation aerosol inhaler (Symbicort) budesonide-formoterol HFA 160 See Rx Instructions .Route 02/16/25 03/16/25 Rx mcg-4.5 mcg/actuation aerosol .COMPLEX #10.2 grams inhaler azelastine 137 mcg (0.1 %) nasal See Rx Instructions .Route 02/23/25 03/16/25 Rx spray .COMPLEX #30 mL ibuprofen 800 mg tablet 800 mg PO Q8H PRN pain 30 days #90 03/08/25 03/16/25 Rx tabs tirzepatide 10 mg/0.5 mL 10 mg SQ WEEKLY 03/16/25 03/16/25 History subcutaneous pen injector (Jessy) sodium,potassium,mag sulfates 17.5 See Rx Instructions PO .COMPLEX 03/23/25 Rx gram-3.13 gram-1.6 gram oral soln #354 mL (Suprep Bowel Prep Kit) New Prescriptions to Start Prescriptions: Allergies Allergy/AdvReac Type Severity Reaction Status Date / Time semaglutide (From [facility]) Allergy Rash Verified 04/05/25 11:54 Exam Data for Last 24 hours Vital signs and Labs for Last 24 Hours: Temp Pulse Resp Pulse Ox O2 Del Method 97.4 F L 107 H 18 99 Room Air 04/05/25 11:56 04/05/25 11:56 04/05/25 11:56 04/05/25 11:56 04/05/25 11:56 I & O for Last 24 hours: Intake & Output 04/02/25 04/03/25 04/04/25 04/05/25 23:59 23:59 22:59 23:59 Weight 255 lb *Routine HEENT Exam Head: Present normocephalic Eye: Present EOMI and PERRL ENT: Present mucous membranes moist *Routine Neck Exam Neck: Present supple *Routine Respiratory Exam Respiratory: Present CTA bilaterally *Routine Cardiovascular Exam Cardiovascular: Present RRR *Routine Abdominal Exam Abdominal: Present soft and normoactive bowel sounds; Absent tenderness *Routine Rectal Exam Rectal:: deferred *Routine Genitalia Exam Genitalia:: deferred *Routine Extremities Exam Extremities: Absent cyanosis, clubbing or edema *Routine Skin Exam Skin: Present warm; Absent rash *Routine Neurological Exam Neurological: Present alert and oriented X3 Assessment and Plan *Assessment and plan (1) Screening for colon cancer: Status: Acute Category: Medical Code(s): Z12.11 - Encounter for screening for malignant neoplasm of colon (2) Personal history of colon polyps, unspecified: Status: Acute Category: Medical Code(s): Z86.0100 - Personal history of colon polyps, unspecified Plan A/P: 1. Screening for colon cancer with personal history of colon polyps (unspecified) is the preprocedural diagnosis. The patient will be anesthetized/sedated using MAC sedation. The patient has been seen and examined. Cardiac and lung assessment prior to the examination is stable. Proceed with planned screening/surveillance colonoscopy.
--- NOTE | 2025-04-05 12:41 | HMH.PROCNOTE ---
[facility] Procedure Note Date: 04/05/25 Time: 12:58 Procedure Note:: Colonoscopy Procedure Report: Colonoscopy with cold snare polypectomy Endoscopist: Fred Thapa II, MD Referring physician: Clayton Sanabria MD Date of Procedure: April 05, 2025 Equipment: Olympus [id number] adult colonoscope Sedation: MAC sedation Indication: Mr. House is a 49-year-old gentleman who is here for follow-up screening/surveillance colonoscopy. The [facility] and had 6 polyps (hyperplastic polyps x 6) removed. He reports no abdominal pain, weight loss, change in his bowel habits or rectal bleeding. He reports no family history of colon cancer. Procedure: Prior to the procedure, a history and physical exam was performed, and patient's medications and allergies were reviewed. The risks, benefits and alternatives of the sedation and procedure were discussed with the patient. All questions were answered and informed consent was obtained. The patient was brought to the procedure room. Patient identification and proposed procedure were verified by the physician and the nurse. The patient was placed in a left lateral decubitus position and the scope was passed under direct vision. Throughout the procedure, the patient's blood pressure, pulse, and oxygen saturations were monitored continuously. The colonoscopy was accomplished without difficulty. The patient tolerated the procedure well. Findings: On digital rectal examination there was normal rectal tone. There were no external hemorrhoids. The prostate was 2+, smooth, soft, symmetric without nodules. The colonoscope was introduced through the anal canal to the rectum and advanced to the cecum. The ileocecal valve and appendiceal orifice were identified. The scope was advanced a short distance into the ileum which appeared grossly normal. The scope was then withdrawn into the colon. The cecum, ascending and transverse colon and mucosa were grossly normal. There were scattered diverticuli throughout the descending and sigmoid colon (LEFT colon). There were 4 polyps (rectosigmoid x 1 (4 mm) and rectal x 3 (4, 5 and 5 mm)). These were all removed via cold snare polypectomy. Most of these appeared hyperplastic. The rectum itself was normal. Upon retroflexion within the rectum there were grade 2 internal hemorrhoids. The preparation was excellent throughout with [place] Preparation Score of 9. The cecal time was 14 minutes. Impression: 1. Diminutive colonic polyps x 4 2. Mild left-sided diverticulosis 3. Grade 2 internal hemorrhoids Plan: I will follow-up the polyp histology and recommend repeat screening/surveillance colonoscopy again in 5 to 10 years based upon the pathology.
[2025-04-05 13:01] VITALS: BP 101/60; PULSE 99; RESP 15; TEMP 36.3; O2SAT 99
[2025-04-05 13:11] VITALS: BP 106/66; PULSE 95; RESP 17; TEMP 36.3; O2SAT 99
[2025-04-05 13:21] VITALS: BP 117/68; PULSE 100; RESP 17; TEMP 36.3; O2SAT 99
[2025-04-05 13:31] VITALS: BP 121/75; PULSE 102; RESP 18; TEMP 36.3; O2SAT 99
[2025-04-08 16:01] LABS: POC Glucose,Bedside 121 gm/dL (70-110)
== END 2025-04-05 13:47 | disposition home or self-care (01) ==
PROVIDERS: PCP Family Medicine; Visit Provider Internal Medicine Gastroenterology
PROC: 0DJD8ZZ Inspection of Lower Intestinal Tract, Via Natural or Artificial Opening Endoscopic (ICD-10-PCS; CPT 45378; principal; 2025-04-05 12:30)
DX: Z12.11 Encounter for screening for malignant neoplasm of colon (principal); K63.5 Polyp of colon; K64.1 Second degree hemorrhoids; K57.30 Diverticulosis of large intestine without perforation or abscess without bleeding; I10 Essential (primary) hypertension; E78.5 Hyperlipidemia, unspecified; E11.9 Type 2 diabetes mellitus without complications; G47.33 Obstructive sleep apnea (adult) (pediatric); Z79.84 Long term (current) use of oral hypoglycemic drugs; Z79.85 Long-term (current) use of injectable non-insulin antidiabetic drugs; Z79.82 Long term (current) use of aspirin; Z86.0102 Personal history of hyperplastic colon polyps; Z87.891 Personal history of nicotine dependence; Z88.2 Allergy status to sulfonamides; Z90.49 Acquired absence of other specified parts of digestive tract
CPT/HCPCS: 45385; 82962; 88305; J2003; J2704; J7120